=== PATIENT | female | born 1970 | race Caucasian/White ===

== ENCOUNTER 2021-11-29 11:28 | Outpatient (REF) | payer MEDICAID, SELFPAY ==
--- NOTE | 2021-11-29 10:00 | PAPFT_PTH ---
PATIENT: Leslie Arias LOC: [facility] U#:[id number] AGE/SX: 51/F ROOM: RE11/29/[address]: Sandra Parikh MD : 1970 BED: DIS: 11/29/2021 SPEC #: [id number] RECD: 11/29/21 17:41 STATUS: ANKUSH REWill #: [id number] AUGUSTIN: 11/29/21 10:[address]: Sandra Parikh DEPT: [facility] Cytology RECD BY: Franci Galvan Tissues: 1 - CX/ENDOCX FOR PAP SMEARS Procedures: PAP THIN PREP/UVM Screening HPV DNA PROBE Comments: [id number]
== END 2021-11-29 11:29 | disposition home or self-care (01) ==
LOC: LBN 11:28
PROVIDERS: PCP Internal Medicine; Visit Provider Internal Medicine
DX: Z11.51 Encounter for screening for human papillomavirus (HPV) (principal); Z12.4 Encounter for screening for malignant neoplasm of cervix
CPT/HCPCS: 88142; 87624

== ENCOUNTER → 2022-02-07 01:52 | Outpatient (CLI) | payer MEDICAID, SELFPAY ==
--- NOTE | 2022-02-07 09:29 | DI.MAMMO_ITS ---
Exam(s) MAMMO SCREENING EXAM: MAMMO SCREENING CLINICAL HISTORY: screening, Z12.39 TECHNIQUE: Bilateral full field digital CC and MLO mammographic images were obtained with 3D tomosyn thesis and utilizing computer aided detection (CAD). COMPARISON: None. FINDINGS: Masses/Architectural Distortion: There is an ovoid density in the medial central left breast on the c raniocaudad view. Microcalcifications: No suspicious pleomorphic-type are seen. Skin Thickening/Nipple Retraction: None. IMPRESSION: 1. Ovoid density in the medial central left breast on the craniocaudad view. 2. This area should be further evaluated with a spot compression view. Ultrasound may be indicated a t that time. BI-RADS Category 0 - Assessment Incomplete: Need additional imaging evaluation Breast Density - Category C - Heterogeneously dense Breast density category C or D implies that the patient has dense breast tissue. Dense breast tissue is very common and is not abnormal but dense breast tissue can make it harder to find cancer on a ma mmogram. Also, dense breast tissue may increase their breast cancer risk. This information about the result of the mammogram report was provided to the patient to raise their awareness. Use this report when you speak with the patient about their risks for breast cancer, which includes their family hist ory. At that time, you may recommend for more screening tests (Ultrasound or MRI) as they might be us eful based on their risk. A negative radiographic report should not delay biopsy if a dominant or clinically suspicious mass is present. Up to ten percent of cancers are not identified on mammography. A negative report may reinforce clinical impression. Adenosis and dense breasts may obscure an underlying neoplasm. False positive reports average 6 to 10%. Patient will receive a letter notifying them of these results.
== END ==
PROVIDERS: PCP Internal Medicine; Visit Provider Internal Medicine
DX: Z12.31 Encounter for screening mammogram for malignant neoplasm of breast (principal)
CPT/HCPCS: 77063; 77067

== ENCOUNTER → 2022-03-05 03:01 | Outpatient (CLI) | payer MEDICAID, SELFPAY ==
--- NOTE | 2022-03-05 10:30 | DI.MAMMO_ITS ---
Exam(s) MG MAMMO SCREEN CALL BACK UNI US BREAST LT LIMITED EXAM: MG MAMMO SCREEN CALL BACK UNI and U/S breast LT limited CLINICAL HISTORY: F/U ABNL MAMMO, OVOID DENSITY MEDIAL LT BREAST ON CC VIEW. TECHNIQUE: Craniocaudal and mediolateral oblique Full Field Digital Mammography views of the left br east with Computer Aided Diagnosis followed by Tomosynthesis and left breast ultrasound. COMPARISON: Priors for comparison. FINDINGS: Mammography/Tomosynthesis: Masses/Architectural Distortion: None seen. No persistent abnormality is seen on the additional views . Microcalcifictions: No suspicious pleomorphic-type are seen. Skin Thickening/Nipple Retraction: None. Limited left breast US: Echotexture: Normal appearance of the glandular tissue. Shadowing: No suspicious foci. Cyst: There is a 1.1 x 1.1 x 0.7 cm simple cyst at the 3 o'clock position of the left breast 2 cm fro m the nipple. There are 2 simple cysts at the 12 o'clock position 2 cm from the nipple. The larger measures 0.7 cm. The smaller measures 0.6 cm. Solid lesions: None seen. Ductal dilation: None. IMPRESSION: 1. No evidence of malignancy is noted. 2. Unless there is more urgent need, follow-up screening mammography is recommended, as per [employer] guidelines. 3. The findings were discussed with the patient on the date of the examination. BI-RADS Category 2 - Benign Findings Breast Density - Category C - Heterogeneously dense Breast density Category C or D implies that the patient has dense breast tissue. Dense breast tissue can make it harder to find cancer on a mammogram. Dense breast tissue is also associated with an incr eased risk of breast cancer. This information about the result of the mammogram report was provided to the patient to raise their awareness. Use this report when you speak with the patient about their risks for breast cancer, which includes their family history. At that time, you may recommend additional screening tests (Ultrasoun d or MRI) as these tests may add significant information. A negative radiographic report should not delay biopsy if a dominant or clinically suspicious mass is present. Up to ten percent of cancers are not identified on mammography. A negative report may reinforce clinical impression. Adenosis and dense breasts may obscure an underlying neoplasm. False positive reports average 6 to 10%. Patient will receive a letter notifying them of these results.
== END ==
PROVIDERS: PCP Internal Medicine; Visit Provider Internal Medicine
DX: R92.8 Other abnormal and inconclusive findings on diagnostic imaging of breast (principal)
CPT/HCPCS: 76642; 77063; 77067

== ENCOUNTER 2022-04-27 12:05 | Day surgery (SDC) | payer MEDICAID, SELFPAY ==
--- NOTE | 2022-04-26 22:04 | W.COLOREPORT ---
Colonoscopy Report Pre-op diagnosis general: family hx of CRC/hx of enterocele/hemorrhoids Surgeon: Bettye Rodriguez Anesthesia Type: General:No Airway Complications: None Disposition: same day Prep: Miralax/Dulcolax Procedure Description: After informed consent was obtained the patient was taken to the procedure room and placed in a left decubitous position. Monitors were applied and a time out was done. The patients name, date of , procedure, allergies to medications and metal in their body was reviewed. The patient was then sedated. Once sedated and comfortable a rectal exam was done. External exam was normal. Internal exam revealed a normal sphincter tone and no palpable masses. The prostate []. The scope was then introduced and retrofelexed. [] internal hemorrhoids were identified. The scope was then advanced to the cecum [] difficulty. The TI and appendiceal orifice were identified. The prep was []. The scope was then slowly retracted over [] minutes back into the rectum. Polyps were removed at []. The scope was removed and the patient was woken up and taken back to Same day surgery in stable condition. The patient tolerated the procedure well and there were no immediate complications. Follow up: The patient should follow up in [] years unless they develop changes in bowel habits or other new gastrointestinal complaints.
--- NOTE | 2022-04-26 22:06 | W.PM.DSUDISC ---
Discharge Plan Disposition Patient Disposition: HOME Condition: Good Discharge Details Reason For Visit: Colonoscopy and internal hemorrhoid banding Attending Provider: Bettye Rodriguez Primary Care Provider: Sandra Parikh Home Meds and New Rx's Prescriptions: Continued ibuprofen 200 mg capsule 600 mg PO Q6H PRN acetaminophen [Tylenol Extra Strength] 500 mg tablet 500 mg PO Q6H PRN Discontinued bisacodyl [Dulcolax (bisacodyl)] 5 mg tablet,delayed release (DR/EC) 5 mg PO ONCE Qty: 4 0RF Rx Instructions: take per colonoscopy instructions Discharge Instructions Activity:: see above Diet:: see above Discharge Orders Discharge Orders: Discharge Order (Routine); Ordered 04/26/22 Ordered By: Bettye Rodriguez
--- NOTE | 2022-04-27 06:46 | ANES.PREOP_ITS ---
General Info Date of Service Date Performed: 04/27/22 Height: 5 ft 6 in Weight: 74.616 kg Body Mass Index (BMI): 26.5 Surgical Procedure: Operation Date: 04/27/22 12:25 Proposed Procedure Side Surgeon p Colonoscopy Bettye Rodriguez DO s Possible Hemorrhoid Banding Bettye Rodriguez DO Meds Allergies and Home Medications Allergies Allergy/AdvReac Type Severity Reaction Status Date / Time promethazine [From Phenergan] Allergy Severe Anaphylaxis Verified 04/27/22 12:19 hydrocodone bitartrate AdvReac hallucinati Verified 04/27/22 12:19 [From Vicodin] ons oxycodone HCl [From Percocet] AdvReac vomiting Verified 04/27/22 12:19 Home Medication Medication Instructions Recorded acetaminophen 500 mg tablet 500 mg PO Q6H PRN 04/23/22 (Tylenol Extra Strength) ibuprofen 200 mg capsule 600 mg PO Q6H PRN 04/23/22 Current Visit Medications: Current Medications Generic Name Dose Route Start Last Admin Trade Name Allanq PRN Reason Stop Dose Admin Hyoscyamine Sulfate 0.125 mg 04/26/22 22:04 Hyoscyamine 0.125 Mg Sl/Oral/Chew SL DIRECTED PRN Ringer's Solution 1,000 mls @ 80 mls/hr 04/27/22 06:00 IV 04/27/22 23:59 INFUSION [facility] IV Miscellaneous Supplies 1 each 04/27/22 06:00 Iv Access IV 04/27/22 23:59 DIRECTED DELIA Ondansetron HCl 4 mg 04/26/22 22:04 Ondansetron 4 Mg/2 Ml Vial IVP Q4H PRN PRN Nausea / Vomiting Sodium Chloride 0 ml 04/27/22 06:00 Normal Saline Flush 10 Ml Syr IV 04/27/22 23:59 PRN PRN Sodium Chloride 0 ml 04/27/22 06:00 Normal Saline 10 Ml Vial IJ 04/27/22 23:59 DIRECTED PRN Sterile Water 0 ml 04/27/22 06:00 Water,Injection,Sterile 10 Ml Vial IJ 04/27/22 23:59 DIRECTED PRN PFSH Active Problems Active Problems: Problem Status Onset Code Irma-menopausal N95.1 Encounter for colonoscopy in patient with family history of colon cancer Z12.11, Z80.0 Vaginal enterocele N81.5 Attention and concentration deficit R41.840 Irritability and anger R45.4 Anxiety state 04/12/14 F41.1 Depressive disorder F32.A Vaginal prolapse without uterine prolapse N81.10 Urinary frequency R35.0 Family history of colon cancer requiring screening colonoscopy Z80.0 Family history of colon cancer in mother Z80.0 Surgical History Surgical History Biopsy of breast (~1991) Benign cyst Tobacco Smoking/Tobacco Use Status: Never Passive smoking exposure: No Alcohol Alcohol Intake: current Alcohol intake frequency: 3 or more drinks per day Substance Use Substance use: Never Substance use type: does not use Vital Signs and Lab Results Lab Results Blood Type / Crossmatch: No Data to Display Complete Blood Count: No Data to Display Complete Metabolic Panel: No Data to Display Liver Function Panel: No Data to Display Coagulation Panel: No Data to Display Cardiac Panel: No Data to Display Arterial Blood Gas: No Data to Display Venous Blood Gas: No Data to Display Pancreas Panel: No Data to Display Thyroid Panel: No Data to Display Infectious Disease: No Data to Display Blood Cultures: No Data to Display Toxicology Panel: No Data to Display Panel: No Data to Display Anesthesia Assessment and Plan Anesthesia History Personal History: No History of Anesthesia Complications Family History: No Family History of Anesthesia Complications Exercise Tolerance Exercise Tolerance: Metabolic Equivalents>4 Cardiac & Pulmonary Exam Cardiac Exam: Normal S1/S2 Heart Sounds Pulmonary Exam: Clear Bilateral Breath Sounds Implantable Cardiac Device Does patient have a Pacemaker or an ICD?: No Airway Exam Known Difficult Airway: No Mallampati Class: 1 Mouth Opening: Normal (> 3cm) Thyromental Distance: Greater than 3 cm Neck Range of Motion: Full ROM Neck Circumference: Normal Teeth Condition: Normal Dentition ASA Classification ASA Score: ASA 2 Emergency Case?: No NPO Status NPO Status: NPO Clears >2 hours, Solids >8 hours Status Status: Negative HCG Anesthesia Plan Resuscitation Status: Full Code Anesthesia Technique: General Anesthesia Airway Planned: Natural Airway Monitors Used: Standard Monitors Preoperative Comments:: 51 yo female with family hisotry of colon cancer for colo. Sig PMHx: Anxiety/depression, never smoker, daily EtOH.
[2022-04-27 12:21] VITALS: BP 107/73; PULSE 76; RESP 16; TEMP 36.7; O2SAT 99
[2022-04-27] MEDS: Lactated Ringers 1,000 ML 80 ML IV (12:45)
[2022-04-27 12:58] VITALS: BMI 26.5
--- NOTE | 2022-04-27 13:34 | BOWEL_PTH ---
PATIENT: Leslie Arias LOC: [facility] U#:[id number] AGE/SX: 51/F ROOM: RE04/27/[address]: Bettye Rodriguez : 1970 BED: DIS: 04/27/2022 SPEC #: [id number] RECD: 04/27/22 15:14 STATUS: ANKUSH REQ #: [id number] AUGUSTIN: 04/27/22 13:[address]: Bettye Rodriguez DEPT: Surgical Specimen RECD BY: Franci Galvan ENTERED: 04/27/22 15:14 SP TYPE: Bowel OTHR DR: Sandra Parikh MD Tissues: 1 - BIOPSY BOWEL Procedures: GROSS AND MICRO LEVEL 4 Comments: [id number]
[2022-04-27 13:44] VITALS: BP 106/84; PULSE 89; RESP 18; TEMP 36.4; O2SAT 100
[2022-04-27 14:11] VITALS: BP 108/78; PULSE 76; RESP 18; TEMP 36.5; O2SAT 100
--- NOTE | 2022-04-27 14:43 | W.ANESPOSTOP ---
Postoperative Evaluation Date, Time and Location Date Performed: 04/27/22 Time Performed: 14:43 Patient Location: Day Surgery Unit Vital Signs Most Recent Imported Vital Signs: Most Recent Vital Signs Temp Pulse Resp BP Pulse Ox 36.5 C 76 18 108/78 100 04/27/22 14:11 04/27/22 14:11 04/27/22 14:11 04/27/22 14:11 04/27/22 14:11 Pain Score Most Recent Pain Score: Most Recent Pain Score Pain Level 2 04/27/22 14:11 Assessment Mental Status: Awake (Alert & Oriented to Patient Baseline) Airway and Respiratory Function: Patent airway with normal (patient baseline) respiratory exam Cardiovascular Function: Hemodynamically Stable Hydration Status: Adequately Hydrated Nausea & Vomiting: No Nausea or Vomiting Pain: Pt. Denies Any Pain Peripheral Nerve Block: Patient did not receive a nerve block
== END 2022-04-27 14:25 | disposition home or self-care (01) ==
PROVIDERS: PCP Internal Medicine; Visit Provider Surgery
PROC: 0DJD8ZZ Inspection of Lower Intestinal Tract, Via Natural or Artificial Opening Endoscopic (ICD-10-PCS; CPT 45378; principal; 2022-04-27 12:15)
PROC: (CPT 45385; 2022-04-27 12:15)
DX: Z12.11 Encounter for screening for malignant neoplasm of colon (principal); Z80.0 Family history of malignant neoplasm of digestive organs; K64.0 First degree hemorrhoids; K62.1 Rectal polyp
CPT/HCPCS: 45385; 46221; 88305; J2704

== ENCOUNTER → 2022-05-11 13:08 | Outpatient (CLI) | payer MEDICAID, SELFPAY ==
--- NOTE | 2022-05-11 13:00 | DI.RAD_ITS ---
Exam(s) XR CERVICAL SPINE COMP 4-5V EXAM: XR CERVICAL SPINE COMP 4-5V CLINICAL HISTORY: Chronic neck pain. DDD neck M54.2 CERVICALGIA R51.9 HEADACHE G89.29 PAIN. TECHNIQUE: 2D digital imaging was performed. Five images were obtained. AP, odontoid, lateral and bi lateral oblique images were obtained. COMPARISON: No exams were available for comparison FINDINGS: The odontoid is intact. The lateral masses are well aligned. There is straightening of the normal ce rvical lordosis. There is disc space narrowing at C5-6 and C6-C7 in addition to endplate osteophytes . No acute fracture or subluxation is present. There is very mild neural foraminal narrowing bilater ally at C6-C7. The cervical thoracic junction is well maintained. The prevertebral soft tissues are unremarkable. Lung apices are clear. IMPRESSION: Rzep-ye-eoycdzhf cervical spondylosis. DATA REPOSITORY: RADIATION DOSE DELIVERED:
== END ==
PROVIDERS: PCP Internal Medicine; Visit Provider Nurse Practitioner
DX: G89.29 Other chronic pain (principal); M54.2 Cervicalgia; R51.9 Headache, unspecified; M47.812 Spondylosis without myelopathy or radiculopathy, cervical region
CPT/HCPCS: 72050

== ENCOUNTER 2022-05-17 08:28 | Outpatient (CLI) | payer MEDICAID, SELFPAY ==
[2022-05-17 08:46] LABS: HCT 38.8 % (36.0-46.0); HGB 12.5 g/dL (11.2-15.7); MCH 31.7 pg (27.0-33.0); MCHC 32.2 % (32.0-36.0); MCV 99 fL (80-95); Platelet Count 256 10^3/uL (130-400); RBC 3.94 10^6/uL (3.93-5.22); RDW 12.2 % (11.7-14.6); RDW-SD 44.8 fL; WBC 4.35 10^3/uL (4.4-10.8)
--- OUTSIDE RECORDS SUMMARY | 2022-05-17 08:57 | XMS_ITS | Encounter Summary ---
:1970 Author Organization [facility] Address [address] [place] [address] Care Team Providers Name Role Phone Unavailable Primary Care Provider Unavailable Encounter Details Date Type Department Care Team Description 06/02/2008 Before PRISM Converted [facility] Cuevas usan, Visit (Maple) Maple conversion CN [address] [place], [place] [id number] [place] [id number] Social History Tobacco Use Types Packs/Day Years Used Date Never Assessed Sex Assigned at Date Recorded Not on file documented as of this encounter Plan of Treatment Not on filedocumented as of this encounter Procedures Procedure Name Priority Date/Time Associated Diagnosis Comme nts CYTOPATHOLOGY Routine 06/02/2008 0:00 EST Results for this procedure are i n the results section . documented in this encounter Results CYTOPATHOLOGY (06/02/2008 0:00 EST) Pathology Report: CYTOPATHOLOGY REPORT ? [facility] ? LAB Reports generated via electr Deng[employer] Online interface contain original data; ? however they are lacking the format of the original report. ? Caution should be taken when reading/interpreting unformatted reports. ? Name: ? HEATHER ARIAS ? Accession #: ? [id number] ? : ? 1970 (Age: 37) ??F ?Collect Date: ? 06/02/2008 ? Location: ? [facility] ? Receive Date: ? 06/03/2008 ? Provider: ?JEANINE LANDAVERDE CNM ? Copy to: ? Specimen/Source: ? Pap Test, Cervix/Endocervix, ThinPrep Imaging System ? with manual evaluation ? Last Menstrual Period: ? 8/5/07 ? Menstrual/ Status: ? Post : De. 5-5-08 ? Treatment History: ? LEEP: 1997 Normal paps since ? Other: ? HPVA - HPV testing requested if ASC-US on the current ThinPrep Pap test. ? SPECIMEN ADEQUACY ? Satisfactory for Eval uation ? - transformation zone compon ent present ? GENERAL CATEGORIZATION ? Negative for Intraepi thelial Lesion or Malignancy ? Document reviewed and electr onically signed by: ? Jeanien B. Michael, SCT( ASCP) ? Report Date: ??11/24/ 2008 11:14 ? End of Report ? Specimen Performing Organization Address City/State/ZIP Code Phon e Number [facility] [address] [place] [address] SERVICES [facility] [address] [place] [address] documented in this encounter Visit Diagnoses Not on filedocumented in this encounter
--- OUTSIDE RECORDS SUMMARY | 2022-05-17 08:57 | XMS_ITS | Encounter Summary ---
:1970 Author Organization [facility] [place] [address] Care Team Providers Name Role Phone Sandra Parikh MD Primary Care Provider Encounter Details Date Type Department Care Team Description 03/21/2011 Abstract Dermatology Sarah Gudino, RN [address] [place], [place] [address] Social History Tobacco Use Types Packs/Day Years Used Date Never Assessed Sex Assigned at Date Recorded Not on file documented as of this encounter Plan of Treatment Not on filedocumented as of this encounter Visit Diagnoses Not on filedocumented in this encounter Care Teams Sulfonation Equipment Operator Relationship Specialty Start Date End Date Sandra Parikh MD PCP - General 03/15/11 [address] [place], [place] [id number] documented as of this encounter
--- OUTSIDE RECORDS SUMMARY | 2022-05-17 08:57 | XMS_ITS | Encounter Summary ---
:1970 Author Organization [facility] Address [address] [place] [address] Care Team Providers Name Role Phone Unknown, Provider Primary Care Provider Sandra Parikh MD Primary Care Provider Encounter Details Date Type Department Care Team Description 11/30/2021 Lab Requisition [facility] Sandra Parikh Enc ounter for screening for human papillomavirus (HPV); Pathology & MD Encounter for screening for malignant ne oplasm of cervix Laboratory Medicine [address] [place] [id number] Social History Tobacco Use Types Packs/Day Years Used Date Never Assessed Sex Assigned at Date Recorded Not on file documented as of this encounter Plan of Treatment Not on filedocumented as of this encounter Procedures Procedure Name Priority Date/Time Associated Diagnosis Comme nts PAP TEST Today 11/29/2021 10:00 Encounter for Results fo r this EDT screening for human procedur e are in papillomavirus ( HPV) the results Encounter for section. screening for malignant neoplasm of cervix HUMAN PAPILLOMAVIRUS Today 11/29/2021 10:00 Encounter for Re sults for this (HPV) DETECTION-HIGH EDT screening for human procedure are in RISK TYPES papillomavirus ( HPV) the results Encounter for section. screening for malignant neoplasm of cervix documented in this encounter Results HUMAN PAPILLOMAVIRUS (HPV) DETECTION-HIGH RISK TYPES (11/29/2021 10:00 EDT) Human Papillomavirus NegativeComment: No Negative [facility] (HPV) Detection-High E6 or E7 mRNA is CENTER LABORATOR Y Types detected from HPV SERVICES types 16,18,31,33,35,39,45 ,51,52,56,58,59,66, and 68 by real estate administrative assistant mediated amplification. Specimen Pap Test - Cervix and/or Endocervix Performing Organization Address City/State/ZIP Code Phon e Number [facility] [address] [place] [address] SERVICES PAP TEST (11/29/2021 10:00 EDT) Specimens A. Cervix and/or [facility] Endocervix , ThinPrep CENTER Imaging System with LABORATORY Manual Evaluation SERVICES Specimen Adequacy Satisfactory for [facility] Evaluation - CENTER transformation zone LABORATORY component present SERVICES General Negative for [facility] intraepithelial [place] lesion or malignancy LABORATORY SERVICES Attestation . [facility] signed by Yann patel, LABORATORY ERIN Landaverde( CP) SERVICES on 12/07/2021 at 0811 Clinical History SEE BELOW [facility] SERVICES HPV The result for the Human Pap illomavirus (HPV) Detection-High Risk Types is Negative. No E6 or E7 mRNA is detected from HPV types 16,18,31,33,35,39,45,51,52,56,58,59,66, and 68 by real estate administrative assistant mediated [facility] amplification.Testing was pe rformed on specimen [id number] and was resulted on 12/07/2021 0759 EDT by ROMAN, LAB INSTRUMENT RESULTS IN [facility] SERVICES Performing Lab [facility] SERVICES Scanned Images [facility] SERVICES Specimen Pap Test - Cervix and/or Endocervix Performing Organization Address City/State/ZIP Code Phon e Number [facility] [address] [place] [address] SERVICES documented in this encounter Visit Diagnoses Diagnosis Encounter for screening for human papill omavirus (HPV) Special screening examination for human papillomavirus (HPV) Encounter for screening for malignant ne oplasm of cervix Screening for malignant neoplasm of the cervix documented in this encounter Care Teams Oil Program Compliance Specialist Relationship Specialty Start Date End Date Unknown, Jaqui, PCP - General 06/07/15 03/14/22 Sandra Parikh MD PCP - General 03/15/22 [address] [place] [address] documented as of this encounter
--- OUTSIDE RECORDS SUMMARY | 2022-05-17 08:57 | XMS_ITS | Encounter Summary ---
:1970 Author Organization [facility] [place] [address] Care Team Providers Name Role Phone Sandra Parikh MD Primary Care Provider Reason for Visit Reason Comments Skin Check Encounter Details Date Type Department Care Team Description 03/22/2011 Office Visit Dermatology Natalio Tsai, History of basal cell [address] MD carcinoma (Primary [address]) [place], [place] DERMATOLOGY [address] [place] [address] [phone] (Wo rk) Social History Tobacco Use Types Packs/Day Years Used Date Former Smoker Sex Assigned at Date Recorded Not on file documented as of this encounter Progress Notes Natalio Tsai MD - 03/22/2011 9:41 AM EDT Problems: 1. Followup skin checkup. 2. 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 3. Acne/Rosacea overlap. Leslie follows up and has been doing well. 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 Her acne/Rosacea tends to flare a little bit around times of stress but otherwise is doing fairly well. She is not on the pill, not using anything topically. She had been given a prescription for Metronidazole by another provider but lost the prescription. The episode of the vicryl suture spitting back in 12/2009 resolved uneventfully and she has had no further problems along the Mohs excision site on the right nondenominational. Physical examination confirms a minimal and very thin curvilinear incision line along the right nondenominational scalp hairline. It is not erythematous or indurated. Examination of the head and neck reveals a sebaceous complexion with a few benign compound versus intradermal nevi. She has benign examination of the chest, back, hands, arms, forearms, thighs and calves. Assessment & Plan: History of sclerosing BCCa, right nondenominational, excised with Mohs surgery. a. No evidence of recurrence. b. Patient reassured. Acne/Rosacea overlap. a. Another prescription given for Metronidazole 0.75% gel apply to face on a q/ day/BID basis/p.r.n. a week prior to times of stress, 30gm dispensed with five refills. b. RTC here on a p.r.n. basis. NOTE: The patient asks about microdermabrasion to open up and exfoliate her skin. I recommended that she be seen in consultation by Dr. Som Delgado. The patient will make her own appointment. Cc: John Wheeler MD documented in this encounter Plan of Treatment Not on filedocumented as of this encounter Visit Diagnoses Diagnosis History of basal cell carcinoma - Primar y Personal history of other malignant neop lasm of skin documented in this encounter Care Teams Medical Front Desk Specialist Relationship Specialty Start Date End Date Sandra Parikh MD PCP - General 03/15/[address] [place] [address] documented as of this encounter
--- OUTSIDE RECORDS SUMMARY | 2022-05-17 08:57 | XMS_ITS | Encounter Summary ---
:1970 Author Organization [facility] Address [address] [place] [address] Care Team Providers Name Role Phone Unavailable Primary Care Provider Unavailable Encounter Details Date Type Department Care Team Description 06/18/2014 Results Only [facility] Jacob Kate, VICTORIANO Laboratory Services - [address] [place] [address] [address] [place] [address] [phone] Social History Tobacco Use Types Packs/Day Years Used Date Never Assessed Sex Assigned at Date Recorded Not on file documented as of this encounter Plan of Treatment Not on filedocumented as of this encounter Procedures Procedure Name Priority Date/Time Associated Diagnosis Comme nts PAP TEST- RESULT Routine 06/18/2014 0:00 EST Resu lts for this ONLY procedure are i n the results section. documented in this encounter Results PAP TEST- RESULT ONLY (06/18/2014 0:00 EST) Pathology Report: CYTOPATHOLOGY REPORT [facility] Reports generated via electronic interface contain asael ginal data; SERVICES however they are lacking the format of the original re port. Caution should be taken when reading/interpreting unfo rmatted reports. Name: ? HEATHER ARIAS ? Accession #: ? [id number] ? : ? 1970 (Age: 43) ??F ?Collect Da te: ? 06/18/2014 ? Location: ? [facility] ? Receive Date: ? 014 ? Provider: KIKI KATE [facility] Copy to: CHARLES NARANJO MD ? Final Report SPECIMEN ADEQUACY ? Satisfactory for Evaluation - transformation zone component present GENERAL CATEGORIZATION ? Negative for Intraepithelial Lesion or Malignan cy ?? Last Menstrual Period: 3 weeks ago Specimen/Source: ??Pap Test, Cervix/Endocervix, ThinPr ep Imaging System with manual evaluation Document reviewed and electronically signed by: ? Ansley Malone, ERIN(ASCP) ? Report ??Date: 06/24/2014 10:04 HPV with Pap Test ? Date Ordered: ? 06/24/2014 ? Status: ?? Signed Out ?Date Complete: ? 06/28/2014 ? By: ??S ystem Interface ? Date Reported: ? 06/28/2014 ? Interpretation RESULT: Negative for HPV. No E6 or E7 mRNA is detected from HPV types 16,18,31,3 3,35, 39,45,51,52,56,58,59,66, and 68 by information and referral director media phoebe amplification. Comments Document reviewed and electronically signed by: ? System Interface ? Report date: 06/28/2014 By the signature above, the attending physician certif ies that he/she has personally conducted a gross and/or microscopic examin ation of the described specimens and rendered or confirmed the above diagnosi s. End of Report Specimen Performing Organization Address City/State/ZIP Code Phon e Number [facility] [address] [place] [address] SERVICES documented in this encounter Visit Diagnoses Not on filedocumented in this encounter
--- OUTSIDE RECORDS SUMMARY | 2022-05-17 08:57 | XMS_ITS | Encounter Summary ---
:1970 Author Organization [facility] Address [address] [place] [address] Care Team Providers Name Role Phone Sandra Parikh MD Primary Care Provider Encounter Details Date Type Department Care Team Description 04/28/2022 Lab Requisition [facility] Bettye Rodriguez for other Pathology & M, DO general examination Laboratory Medicine - [address] [facility] [address] [place] [phone] Social History Tobacco Use Types Packs/Day Years Used Date Never Assessed Sex Assigned at Date Recorded Not on file documented as of this encounter Plan of Treatment Not on filedocumented as of this encounter Procedures Procedure Name Priority Date/Time Associated Diagnosis Comme nts SURGICAL PATHOLOGY Today 04/27/2022 13:34 Encounter for othe r Results for this EDT general examination procedur e are in the results section. documented in this encounter Results SURGICAL PATHOLOGY (04/27/2022 13:34 EDT) Note to Patient The following [facility] pathology results CENTER have been interpreted LABORATORY by your pathologist SERVICES and may be available to you before your health provider has had the opportunity to review them. Please allow time for your provider to receive these results and explore management options, if applicable. Final Diagnosis A. RECTUM, POLYP, BIOPSY: [facility] MEDICAL - Tubular adenoma. CENTER LABORATORY SERVICES Attestation By the signature [facility] Electronica lly below, the attending CENTER signed by physician Ever certifies LABORATORY Thony Hernandes MD on that they have 1) SERVICES 05/02/2022 at 1110 personally conducted a gross and/or microscopic examination of the described specimen(s), and/or personally interpreted the results of laboratory testing of the described specimen(s), and 2) personally rendered or confirmed the above diagnosis. Clinical History Polyp [facility] SERVICES Gross Description A. [facility] Received in formalin luke d with proper patient identification (initials M, B) and rectal polyp x1 is a single lomeli tissue fragment (0.3 x 0.1 x 0.1 cm). Submitted intact in A1. CENTER LABORATORY DEVIN SINGLETON 04/30/2022 9:42 SERVICES Performing Lab [facility] SERVICES Scanned Images [facility] SERVICES Specimen Tissue - Specimen from rectum (specimen) Performing Organization Address City/State/ZIP Code Phon e Number [facility] [address] [place] [address] SERVICES documented in this encounter Visit Diagnoses Diagnosis Encounter for other general examination documented in this encounter Care Teams Bow Maker Machine Tender Relationship Specialty Start Date End Date Sandra Parikh MD PCP - General 03/15/22 [address] [place], [place] [phone] documented as of this encounter
--- OUTSIDE RECORDS SUMMARY | 2022-05-17 08:57 | XMS_ITS | Clinical Summary ---
:[address] [facility] Address [address] [place] [address] Care Team Providers Name Role Phone Sandra Parikh MD Primary Care Provider Encounters Date Type Specialty Care Team Description 04/28/2022 Lab Requisition Clinical Laboratory Bettye Rodriguez for other M, DO general examina tion from Last 3 Months Social History Tobacco Use Types Packs/Day Years Used Date Never Assessed Sex Assigned at Date Recorded Not on file Plan of Treatment Health Maintenance Due Date Last Done Comments Hepatitis C Screen 1970 COVID-19 Vaccine (#1) 04/10/1972 Procedures Procedure Name Priority Date/Time Associated Diagnosis Comme nts SURGICAL PATHOLOGY Today 04/27/2022 13:34 Encounter for othe r Results for this EDT general examination procedur e are in the results section. from Last 3 Months Results SURGICAL PATHOLOGY (04/27/2022 13:34 EDT) Note to Patient The following [facility] pathology results CENTER have been interpreted LABORATORY by your pathologist SERVICES and may be available to you before your health provider has had the opportunity to review them. Please allow time for your provider to receive these results and explore management options, if applicable. Final Diagnosis A. RECTUM, POLYP, BIOPSY: [facility] - Tubular adenoma. CENTER LABORATORY SERVICES Attestation By the signature [facility] Electronica lly below, the attending CENTER signed by Ever, physician certifies LABORATORY Thony Hernandes MD on that they have 1) SERVICES 05/02/2022 at 1110 personally conducted a gross and/or microscopic examination of the described specimen(s), and/or personally interpreted the results of laboratory testing of the described specimen(s), and 2) personally rendered or confirmed the above diagnosis. Clinical History Polyp [facility] SERVICES Gross Description A. [facility] Received in formalin luke d with proper patient identification (initials M, B) and rectal polyp x1 is a single lomeli tissue fragment (0.3 x 0.1 x 0.1 cm). Submitted intact in A1. CENTER LABORATORY DEVIN SINGLETON 04/30/2022 9:42 SERVICES Performing Lab [facility] SERVICES Scanned Images [facility] SERVICES Specimen Tissue - Specimen from rectum (specimen) Performing Organization Address City/State/ZIP Code Phon e Number [facility] [address] [place] [address] SERVICES from Last 3 Months Insurance Payer Benefit Plan Subscriber ID Effective Phone Address Typ e / Group Dates MEDICAID ACO MEDICAID ACO [id number] 2022-Pre [phone] [address] Medicaid [place] sent [address] [facility] [id number] [phone] [id number] (Work) HugoLeslie Personal/Family Self [address] (Home) [place], [place] [phone] (Work) AriasLeslie Personal/Family Self [address] (Home) [place] [phone] (Work) Leslie Arias Personal/Family Self [address] (Home) [place] [phone] (Work) Leslie Arias Personal/Family Self [address] (Home) [place], [place] [phone] (Work) Leslie Arias Personal/Family Self [address] (Home) [place], [place] [phone] (Work) Leslie Arias Personal/Family Self [address] (Home) [place], [place] [phone] (Work) Leslie Arias Personal/Family Self [address] (Home) [place], [place] [phone] (Work) Care Teams Commercial Baking Teacher Relationship Specialty Start Date End Date Sandra Parikh MD PCP - General 03/15/22 [address] [place] [address]
--- OUTSIDE RECORDS SUMMARY | 2022-05-17 08:57 | XMS_ITS | Clinical Summary ---
:1970 Author Organization [facility] [place] [address] Care Team Providers Name Role Phone Sandra Parikh MD Primary Care Provider Allergies No known active allergies Medications Medication Sig Dispensed Refills Start Date End Date Status LORAZEPAM (ATIVAN ORAL) Take by mouth as 0 Active needed. Active Problems Problem Noted Date History of basal cell carcinoma 03/22/2011 Rosacea 03/21/2011 Social History Tobacco Use Types Packs/Day Years Used Date Former Smoker Sex Assigned at Date Recorded Not on file Plan of Treatment Health Maintenance Due Date Last Done Comments Covid-19 Vaccine (#1) 04/10/1972 HIV screen 10/08/1989 Hepatitis C Screening 10/08/1989 Tdap adult 10/08/1990 Tetanus vaccine 10/08/1990 HPV test 10/08/2001 PAP Smear 10/08/2001 Breast Cancer Share Decision Needed 2011 Colonoscopy 10/08/2016 Breast Cancer screening 10/08/2021 Zoster vaccine (1 of 2) 10/08/2021 Influenza (Flu) vaccine (1 of 1 - Influenza standard 03/15/2022 series) Insurance Payer Benefit Plan / Subscriber ID Effective Dates Phone Addre ss Type Group [place] [id number] 2021-Prese [phone] [address] [facility] [address] [place], [place] [id number] Guarantor Name Account Type Relation to Date of Phone Bill ing Patient Address Leslie Arias Personal/Family Self [address] (Home) [place] [phone] (Work) Care Teams Burlap Bag Sewer Relationship Specialty Start Date End Date Sandra Parikh MD PCP - General 03/15/[address] [place] [address]
--- OUTSIDE RECORDS SUMMARY | 2022-05-17 08:57 | XMS_ITS | Encounter Summary ---
:1970 Author Organization [facility] Address [address] [place] [address] Care Team Providers Name Role Phone Unknown, Provider Primary Care Provider Encounter Details Date Type Department Care Team Description 11/12/2016 Results Only [facility]- Dorcas Montalvo, [facility] [phone] [facility] [place] [address] (Wo rk) Social History Tobacco Use Types Packs/Day Years Used Date Never Assessed Sex Assigned at Date Recorded Not on file documented as of this encounter Plan of Treatment Not on filedocumented as of this encounter Procedures Procedure Name Priority Date/Time Associated Diagnosis Comme nts PAP TEST- RESULT Routine 11/12/2016 0:00 EDT Resu lts for this ONLY procedure are i n the results section. documented in this encounter Results PAP TEST- RESULT ONLY (11/12/2016 0:00 EDT) Pathology Report: CYTOPATHOLOGY REPORT [facility] Reports generated via electronic interface contain asael ginal data; SERVICES however they are lacking the format of the original re port. Caution should be taken when reading/interpreting unfo rmatted reports. Name: ? HEATHER ARIAS ? Accession #: ? [id number] ? : ? 1970 (Age: [age]) ??F ?Collect Date: ? 2016 ? Location: ? [facility] ? Receive Date: ? 7 ? Provider: DORCAS LEIVA [facility] Copy to: CHARLES NARANJO MD ? Final Report SPECIMEN ADEQUACY ? Satisfactory for Evaluation - transformation zone component present GENERAL CATEGORIZATION ? Other, see interpretation INTERPRETATION ? Endometrial cells present in a woman equal to o r greater than age 45. Negative for Intraepithelial Lesion. EDUCATIONAL NOTES/RECOMMENDATIONS ? ASCCP management guid misael advises using histologic endometrial assessment only in postmenopausal women. Benign appearing endometrial cells on Pap tests are usually a normal finding in women with regular menstrual cycles, especially if the Pap test was collected during the first half of the menstrual cycle. There is data showing that e ndometrial cells on Pap tests may be associated with endometrial/uterine abnormal ities in post menopausal women or in perimenopausal women with abnormal bleeding. There is limited data on the significance of anh ign endometrial cells in post menopausal women on HRT. ??Clinical correlation is rec ommended. Note: ??The Pap test is not an accurate test for the screening of endometrial lesions and should not be used as a follow up in patie nts with clinical suspicion of endometrial pathology. Last Menstrual Period: 11/02/16 Specimen/Source: ??Pap Test, Cervix, ThinPrep Imaging System with manual evaluation Document reviewed and electronically signed by: ? ASHLEY GRULLON MD ? Report ??Date: 11/22/2016 13:15 HPV with Pap Test ? Date Ordered: ? 11/21/2016 ? Status: ?? Signed Out ?Date Complete: ? 11/23/2016 ? By: ??Sy stem Interface ? Date Reported: ? 11/23/2016 ? Interpretation RESULT: Negative for HPV. No E6 or E7 mRNA is detected from HPV types 16,18,31,3 3,35, 39,45,51,52,56,58,59,66, and 68 by wet room supervisor media phoebe amplification. Comments Document reviewed and electronically signed by: ? System Interface ? Report date: 11/23/2016 By the signature above, the attending physician certif ies that he/she has personally conducted a gross and/or microscopic examin ation of the described specimens and rendered or confirmed the above diagnosi s. End of Report Specimen Performing Organization Address City/State/ZIP Code Phon e Number [facility] [address] [place] [address] SERVICES documented in this encounter Visit Diagnoses Not on filedocumented in this encounter Care Teams Color Blender Relationship Specialty Start Date End Date Unknown, Provider, PCP - General 06/07/15 03/14/22 documented as of this encounter
--- OUTSIDE RECORDS SUMMARY | 2022-05-17 08:57 | XMS_ITS | Encounter Summary ---
:1970 Author Organization [facility] Address [address] [place] [address] Care Team Providers Name Role Phone Unavailable Primary Care Provider Unavailable Encounter Details Date Type Department Care Team Description 06/04/2007 Results Only [facility] - John Mason MD [address] [place], [place] [id number] [place] [address] [phone] Social History Tobacco Use Types Packs/Day Years Used Date Never Assessed Sex Assigned at Date Recorded Not on file documented as of this encounter Plan of Treatment Not on filedocumented as of this encounter Procedures Procedure Name Priority Date/Time Associated Diagnosis Comme nts SURGICAL PATHOLOGY Routine 06/04/2007 0:00 EST Re sults for this procedure are i n the results section. documented in this encounter Results SURGICAL PATHOLOGY (06/04/2007 0:00 EST) Pathology Report: SURGICAL PATHOLOGY REPORT [facility] Reports generated via electronic interface contain asael ginal data; LAB however they are lacking the format of the original re port. Caution should be taken when reading/interpreting unfo rmatted reports. Name: ? HEATHER ARIAS ? Accession #: ? [id number] ? : ? 1970 (Age: 36) ??F ? Collect Date: ? 06/04/2007 ? Location: ? [facility] ? Receive Date: ? 007 ? Provider: JOHN DEL VALLE MD Copy to: ? Final Pathologic Diagnosis: ? Skin of lower extremity, left, shave biopsy: - Molluscum contagiosum. ?? Microscopic Description: ? There is a papule formed by a hyp erplastic epidermis that has a bulbous endophytic growth pattern with a central keratot ic crater. ??The hyperplastic epidermis consists of keratinocytes whose nuclei are d isplaced by large eosinophilic inclusions. ??T he inclusions are also present within the overlying horn. ??(Dr. Bryant)/glenn Document reviewed and electronically signed by: Olga Lidia Bryant MD Report ??Date: 06/09/2007 14:49 By the signature above, the attending physician certif ies that he/she has personally conducted a gross and/or microscopic examin ation of the described specimens and rendered or confirmed the above diagnosi s. Specimen(s) Received: ? Shave biopsy LLE Clinical History: ? Non-healing lesion; ? [facility] Gross Description: ? Received in formalin labelled Arias and shave bx LLE is a 0.8 x 0.6 x 0.3 cm shave biopsy of lomeli s kin. ??There is a 0.3 x 0.3 x 0.1 cm lomeli-white papule eccentrically located on the shave biopsy. ??The speci men is trisected and entirely submitted in one cassette. ??(Dr. Casarez)/glenn End of Report Specimen Performing Organization Address City/State/ZIP Code Phon e Number [facility] [address] [place] [address] SERVICES [facility] [address] [place] [address] documented in this encounter Visit Diagnoses Not on filedocumented in this encounter
--- OUTSIDE RECORDS SUMMARY | 2022-05-17 08:57 | XMS_ITS | Encounter Summary ---
:1970 Author Organization [facility] Address [address] [place] [address] Care Team Providers Name Role Phone Unavailable Primary Care Provider Unavailable Encounter Details Date Type Department Care Team Description 01/18/2012 Results Only [facility] Jacob Kate, BIAS BINDING FOLDER Laboratory Services - [address] [place] [address] [address] [place] [address] [phone] Social History Tobacco Use Types Packs/Day Years Used Date Never Assessed Sex Assigned at Date Recorded Not on file documented as of this encounter Plan of Treatment Not on filedocumented as of this encounter Procedures Procedure Name Priority Date/Time Associated Diagnosis Comme nts PAP TEST- RESULT Routine 01/18/2012 0:00 EDT Resu lts for this ONLY procedure are i n the results section. documented in this encounter Results PAP TEST- RESULT ONLY (01/18/2012 0:00 EDT) Pathology Report: CYTOPATHOLOGY REPORT [facility] Reports generated via electronic interface contain asael ginal data; however they are lacking the format of the original re port. Caution should be taken when reading/interpreting unfo rmatted reports. Name: ? HEATHER ARIAS ? Accession #: ? [id number] ? : ? 1970 (Age: 41) ??F ?Collect Da te: ? 01/18/2012 ? Location: ? [facility] ? Receive Date: ? 012 ? Provider: KIKI KATE BIAS BINDING FOLDER Copy to: ? Final Report SPECIMEN ADEQUACY ? - scant squamous epithelial component Satisfactory for Evaluation - transformation zone component present GENERAL CATEGORIZATION ? Negative for Intraepithelial Lesion or Malignan cy INTERPRETATION ? Reactive cellular tiffanie nges associated with inflammation present (includes repair). Last Menstural Period: 12/23/11 Treatment History: LEEP: 1996 Specimen/Source: ??Pap Test, Cervix/Endocervix, ThinPr ep Imaging System with manual evaluation Document reviewed and electronically signed by: ? ALIS COKER MD ? Report ??Date: 01/25/2012 13:04 HPV with Pap Test ? Date Ordered: ? 01/25/2012 ? Status: ?? Signed Out ?Date Complete: ? 01/29/2012 ? By: ??S ystem Interface ? Date Reported: ? 01/29/2012 ? Interpretation RESULT: Negative for HPV. No E6 or E7 mRNA is detected from HPV types 16,18,31,3 3,35, 39,45,51,52,56,58,59,66, and 68 by alteration manager media phoebe amplification. Comments Document reviewed and electronically signed by: ? System Interface ? Report date: 01/29/2012 By the signature above, the attending physician certif ies that he/she has personally conducted a gross and/or microscopic examin ation of the described specimens and rendered or confirmed the above diagnosi s. End of Report Specimen Performing Organization Address City/State/ZIP Code Phon e Number [facility] [address] [place] [address] SERVICES [facility] [address] [place] [address] documented in this encounter Visit Diagnoses Not on filedocumented in this encounter
--- OUTSIDE RECORDS SUMMARY | 2022-05-17 08:57 | XMS_ITS | Encounter Summary ---
:1970 Author Organization [facility] Address [address] [place] [address] Care Team Providers Name Role Phone Unavailable Primary Care Provider Unavailable Encounter Details Date Type Department Care Team Description 05/14/2007 Results Only [facility] - Heidi Webster CNM conversion [address] [facility] [address] [place], [place] [id number] [place] [id number] [phone] Social History Tobacco Use Types Packs/Day Years Used Date Never Assessed Sex Assigned at Date Recorded Not on file documented as of this encounter Plan of Treatment Not on filedocumented as of this encounter Procedures Procedure Name Priority Date/Time Associated Diagnosis Comme [facility] CYTOPATHOLOGY Routine 05/14/2007 0:00 EDT Results for this procedure are i n the results section . documented in this encounter Results CYTOPATHOLOGY (05/14/2007 0:00 EDT) Pathology Report: CYTOPATHOLOGY REPORT [facility] Reports generated via electronic interface contain asael ginal data; however they are lacking the format of the original re port. Caution should be taken when reading/interpreting unfo rmatted reports. Name: ? HEATHER ARIAS ? Accession #: ? [id number] : ? 1970 (Age: 36) ??F ?Collect Date: ? 04/16 Location: ? [facility] ? Receive Date : ? 05/15/2007 Provider: ?HEIDI CISNEROS CNM Copy to: ? Specimen/Source: ? ThinPrep Pap Test, Cervix/Endocervix, processed on [employer] ThinPrep Imaging System, with manual evaluation Last Menstrual Period: ? 02/16/07 Menstrual/ Status: ? Treatment History: ? LEEP: 1996 Other: ? Additional clinical information: Pt stat es h/o abnormal pap 10 years ago, also pap wnl since leep 1996 HPVA - HPV testing requested if ASC-US on the current ThinPrep Pap test. ? SPECIMEN ADEQUACY ? Satisfactory for Evaluation - transformation zone component present GENERAL CATEGORIZATION ? Negative for Intraepithelial Lesion or Malignan cy ? Document reviewed and electronically signed by: ? ERIN Stevenson(ASCP) ? Report Date: ??05/20/2007 13:24 End of Report Specimen Performing Organization Address City/State/ZIP Code Phon e Number [facility] [address] [place] [address] SERVICES [facility] [address] [place] [address] documented in this encounter Visit Diagnoses Not on filedocumented in this encounter
--- OUTSIDE RECORDS SUMMARY | 2022-05-17 08:57 | XMS_ITS | Encounter Summary ---
:1970 Author Organization [facility] Address [address] [place] [address] Care Team Providers Name Role Phone Unavailable Primary Care Provider Unavailable Encounter Details Date Type Department Care Team Description 06/06/2009 Orders Only [facility] Heidi Carter CNM Laboratory Services - [address] [place] [address] [address] [facility] [place] [address] [phone] Social History Tobacco Use Types Packs/Day Years Used Date Never Assessed Sex Assigned at Date Recorded Not on file documented as of this encounter Plan of Treatment Not on filedocumented as of this encounter Procedures Procedure Name Priority Date/Time Associated Diagnosis Comme nts CYTOPATHOLOGY Routine 06/06/2009 0:00 EST Results for this procedure are i n the results section . documented in this encounter Results CYTOPATHOLOGY (06/06/2009 0:00 EST) Pathology Report: CYTOPATHOLOGY REPORT ? [facility] ? LAB Reports generated via electr [employer] interface contain original data; ? however they are lacking the format of the original report. ? Caution should be taken when reading/interpreting unformatted reports. ? Name: ? ARIAS, HEATHER ? Accession #: ? [id number] ? : ? 1970 (Age: 38) ??F ?Collect Date: ? 06/06/2009 ? Location: ? [facility] ? Receive Date: ? 06/07/2009 ? Provider: ?ANEA LELON G CNM ? Copy to: ? Specimen/Source: ? Pap Test, Cervix/Endocervix, ThinPrep Imaging System ? with manual evaluation ? Last Menstrual Period: ? 11/05/09 ? Treatment History: ? LEEP: 1997, paps neg. since ? Other: ? HPVA - HPV testing requested if ASC-US on the current ThinPrep Pap test. ? SPECIMEN ADEQUACY ? Satisfactory for Eval uation ? - transformation zone compon ent present ? GENERAL CATEGORIZATION ? Negative for Intraepi thelial Lesion or Malignancy ? Document reviewed and electr onically signed by: ? Saima Huitron, CT(ASCP) ? Report Date: ??12/01/ 2009 08:55 ? End of Report ? Specimen Performing Organization Address City/State/ZIP Code Phon e Number [facility] [address] [place] [address] [facility] [address] [place] [address] documented in this encounter Visit Diagnoses Not on filedocumented in this encounter
[2022-05-17 09:49] LABS: ALT 24 U/L (14-59); AST 16 U/L (15-37); Albumin 3.9 g/dL (3.4-5.0); Alkaline Phosphatase 78 U/L (46-116); Anion Gap 7.3 mmol/L (3-11); BUN 14 mg/dL (7-18); Bilirubin, Total 0.4 mg/dL (0.2-1.0); CO2 28.7 mmol/L (21.0-32.0); CREATININE 0.7 mg/dL (0.55-1.02); Calcium 9.2 mg/dL (8.5-10.1); Chloride 104 mmol/L (98-107); Ferritin 15 ng/mL (8-252); Glucose 85 mg/dL (74-106); Potassium 4.2 mmol/L (3.5-5.1); Sodium 140 mmol/L (136-145)
== END 2022-05-17 08:29 | disposition home or self-care (01) ==
PROVIDERS: PCP Nurse Practitioner; Visit Provider Nurse Practitioner
DX: R53.83 Other fatigue (principal); R51.9 Headache, unspecified; F41.8 Other specified anxiety disorders; R04.0 Epistaxis
CPT/HCPCS: 36415; 80053; 85027; 82728

== ENCOUNTER 2022-06-05 10:18 | Emergency (ER) | payer MEDICAID, SELFPAY ==
[2022-06-05 10:20] VITALS: BP 127/83; PULSE 100; RESP 14; TEMP 37; O2SAT 98
[2022-06-05] MEDS: Silver Nitrate Stick 1 EACH TP (10:59)
--- NOTE | 2022-06-05 11:07 | W.ED.GENAD ---
Discharge Plan Disposition Patient Disposition: Home Condition: Stable Discharge Details Clinical Impression: Epistaxis Primary Care Provider: Latisha Mc ED Provider: Franci Avila Home Meds and New Rx's Prescriptions: Continued ibuprofen 200 mg capsule 600 mg PO Q6H PRN acetaminophen [Tylenol Extra Strength] 500 mg tablet 500 mg PO Q6H PRN nortriptyline 10 mg capsule See Rx Instructions PO QHS Qty: 60 3RF Rx Instructions: Start with 1 tab orally every day at bedtime, increase to 2 tabs at HS; hydroxyzine HCl 25 mg tablet See Rx Instructions PO QID PRN (Reason: headaches) Qty: 30 3RF Rx Instructions: 25-50 orally four times a day PRN; Discharge Instructions Instructions: Nosebleed (ED) Additional Instructions: use humidifier in room coat nostrils twice daily with vaseline refrain from bending over, blowing nose for the remainder of the day follow-up with ENT return earlier with new or worsening complaints Referrals: Latisha Mc, FORGING MACHINE OPERATOR [Primary Care Provider] - Discharge Data Discharge Date/Time-TO BE ENTERED AT DEPARTURE: 06/05/22 13:34 Medical Decision Making Silver nitrate cautery performed, no continued bleeding noted Vitals stable ENT referral Return precautions discussed and patient expressed understanding Coagulation achieved in the emergency department and patient was observed for approximately 15 minutes post several nitrate cauterization Medical Records Medical records reviewed: Yes I reviewed the patient's medical records. Sign Out No HPI General Date/Time Provider Initiated Documentation: 06/05/22 10:37. HPI Narrative: This 51-year-old female presents with report of epistaxis intermittently for the past several days. Denies any weakness or dizziness. Denies history of coagulopathy. Denies any additional complaints at this time. Related Data Home Medications Medication Instructions Recorded Confirmed acetaminophen 500 mg tablet 500 mg PO Q6H PRN 04/23/22 06/05/22 (Tylenol Extra Strength) ibuprofen 200 mg capsule 600 mg PO Q6H PRN 04/23/22 06/05/22 nortriptyline 10 mg capsule See Rx Instructions PO QHS #60 caps 05/03/22 06/05/22 hydroxyzine HCl 25 mg tablet See Rx Instructions PO QID PRN 05/28/22 06/05/22 headaches #30 tabs Previous Rx's Medication Instructions Recorded nortriptyline 10 mg capsule See Rx Instructions PO QHS #60 caps 05/03/22 hydroxyzine HCl 25 mg tablet See Rx Instructions PO QID PRN 05/28/22 headaches #30 tabs Allergies Allergy/AdvReac Type Severity Reaction Status Date / Time promethazine [From Phenergan] Allergy Severe Anaphylaxis Verified 06/05/22 12:43 hydrocodone bitartrate AdvReac hallucinati Verified 06/05/22 12:43 [From Vicodin] ons oxycodone HCl [From Percocet] AdvReac vomiting Verified 06/05/22 12:43 General Stated Complaint: Epistaxis LATASHA: 4 Review of Systems All systems reviewed & are unremarkable except as noted in HPI and below PFSH All Active Problems (Updated 06/05/22 @ 11:09 by YEE Coronado) Epistaxis (Acute) Migraine headache without aura (Acute) Tubular adenoma (Acute ~04/27/22) Irma-menopausal (Acute) Encounter for colonoscopy in patient with family history of colon cancer (Acute) Vaginal enterocele (Acute) Attention and concentration deficit (Acute) Irritability and anger (Acute) Anxiety state (Acute 04/12/14) Depressive disorder (Chronic) Vaginal prolapse without uterine prolapse (Acute) Urinary frequency (Acute) Family history of colon cancer requiring screening colonoscopy (Acute) pt needs to be on 5yr screening cycle Family history of colon cancer in mother (Acute) Medical History Esophageal reflux (09/30/14) Family history of colon cancer (06/18/14) Mother, MGF, Mat aunt Hoarseness (08/18/14) Singers' nodes (08/18/14) Surgical History Biopsy of breast (~1991) Benign cyst History of colonoscopy with polypectomy (~04/27/22) Family History Mother Colon cancer Grandfather Colon cancer maternal Maternal Aunt Colon cancer Social History Smoking/Tobacco Use Status: Never Smoking risk assessment performed?: Yes Alcohol Intake: current Alcohol Intake frequency: 3 or more drinks per day Drug use: Never Substance use type: does not use Caregiver/Support person: No Household members: spouse and children Housing: house Number of Children: 3 number of grandchildren: 1 Communication Needs: None Education Level: master's degree current occupation: working at [employer] at [employer] Pets and animals: Yes Pets and animals: cat(s) Sexually active: Yes Do you think of yourself as: straight/heterosexual Current gender identity: female What is your relationship status?: How often do you talk on the phone with friends or family?: once per week How often do you get together with friends or relatives?: once per week Panel score (0-1 are the most socially isolated patients): 1 What type of physical activity do you participate in: regular exercise Duration: 30-45 minutes/day Frequency: 5-6 times per week Special lorena needs: Yes (Congregation and Hindu) Seatbelt use: always Drive intox or ride w/intox vibratory pile driver: No Working smoke detector in home: Yes Carbon monox detector in home: Yes Do you feel safe at home: Yes Do you feel safe in your relationship?: Yes Exam Const General: cooperative, comfortable and no acute distress [facility] Face images: 1. Small arterial noted one third anterior septum left nare Course Vital Signs Vital signs: Vital Signs Temperature 37.0 C 06/05/22 10:20 Pulse 100 H 06/05/22 10:20 Respiratory Rate 14 06/05/22 10:20 Blood Pressure 127/83 06/05/22 10:20 Pulse Oximetry 98 06/05/22 10:20 Temperature 37.0 C 06/05/22 10:20 Temperature Source Temporal Artery Scan 06/05/22 10:20 Pulse 100 H 06/05/22 10:20 Respiratory Rate 14 06/05/22 10:20 Blood Pressure 127/83 06/05/22 10:20 Blood Pressure Position Sitting 06/05/22 10:20 Pulse Oximetry 98 06/05/22 10:20 Oxygen Delivery Method Room Air 06/05/22 10:20 Oxygen Flow Rate 0 06/05/22 10:20 Procedures Epistaxis Control Time Out Performed: Yes Nostril: left Direct Inspection: yes Cautery Used: silver nitrate Patient Tolerated Procedure: well
[2022-06-05 12:47] VITALS: BP 125/84; PULSE 90; RESP 14; O2SAT 98
== END 2022-06-05 13:34 | disposition home or self-care (01) ==
PROVIDERS: Emergency Provider Physician Assistant; PCP Nurse Practitioner
DX: R04.0 Epistaxis (principal)
CPT/HCPCS: 30901

== ENCOUNTER 2022-09-03 15:59 | Outpatient (CLI) | payer MEDICAID, SELFPAY ==
--- NOTE | 2022-09-03 14:10 | DI.RAD_ITS ---
Exam(s) XR ELBOW LT COMPLETE EXAM: XR ELBOW LT COMPLETE CLINICAL HISTORY: LT ELBOW PAIN-[id number]. TECHNIQUE: 2D digital imaging was performed. Three views. COMPARISON: No exams were available for comparison FINDINGS: BONES: No acute fracture is present. No bony destructive lesion is seen. JOINTS: The elbow is normally aligned. No joint effusion is seen. SOFT TISSUE: Normal. IMPRESSION: Unremarkable radiographs of the left elbow. DATA REPOSITORY: RADIATION DOSE DELIVERED:
== END 2022-09-03 16:19 ==
LOC: DI 16:02
PROVIDERS: PCP Nurse Practitioner; Visit Provider Nurse Practitioner
DX: M25.522 Pain in left elbow (principal)
CPT/HCPCS: 73080

== ENCOUNTER 2022-11-24 07:55 | Emergency (ER) | payer MEDICAID, SELFPAY ==
[2022-11-24 07:59] VITALS: BP 107/74; PULSE 98; RESP 18; TEMP 37; O2SAT 100
--- NOTE | 2022-11-24 08:20 | ED.GENADUL_ITS ---
Discharge Plan Disposition Patient Disposition: Home Discharge Details Chief Complaint: Sorethroat Clinical Impression: Acute viral pharyngitis Primary Care Provider: Latisha Mc ED Provider: Min Noel Home Meds and New Rx's Prescriptions: No Action ibuprofen 200 mg capsule 600 mg PO Q6H PRN acetaminophen [Tylenol Extra Strength] 500 mg tablet 500 mg PO Q6H PRN sumatriptan succinate 100 mg tablet See Rx Instructions PO .COMPLEX Qty: 14 3RF Rx Instructions: take 1 tab at onset of headache; if no relief, may repeat 1 tab after at least 2 hrs; max = 2 tabs/24 hrs PO Discharge Instructions Instructions: Upper Respiratory Infection (ED) Additional Instructions: You may take Tylenol and or Motrin for the pain. You may use some loss injures. Your strep culture is pending. You were tested for COVID and for strep and both of these were negative. If the strep culture comes back positive we will call you. Medical Decision Making Patient with 24 hours of sore throat. Mild fever yesterday. Well-appearing. Strep throat sent by protocol. If negative will be cultured. Rapid strep resulted negative.. Culture pending. COVID test ordered and resulted negative HPI General Date/Time Provider Initiated Documentation: 11/24/22 08:19 . HPI Narrative: 52-year-old lady presented to the emergency department for concern of strep throat. She has been having sore throat for the past 24 hours. Difficulty with swallowing secondary to pain. He did take some Motrin which helped mildly. She thinks he may have had a fever yesterday but no fever today. No nausea no vomiting. No headaches. 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 She did have strep throat several years ago and states that it feels pretty much the same. No cough. Related Data Home Medications Medication Instructions Recorded Confirmed acetaminophen 500 mg tablet 500 mg PO Q6H PRN 04/23/22 11/24/22 (Tylenol Extra Strength) ibuprofen 200 mg capsule 600 mg PO Q6H PRN 04/23/22 11/24/22 sumatriptan succinate 100 mg tablet See Rx Instructions PO .COMPLEX 07/17/22 11/24/22 #14 tabs Previous Rx's Medication Instructions Recorded sumatriptan succinate 100 mg tablet See Rx Instructions PO .COMPLEX 07/17/22 #14 tabs Allergies Allergy/AdvReac Type Severity Reaction Status Date / Time promethazine [From Phenergan] Allergy Severe Anaphylaxis Verified 11/24/22 08:02 hydrocodone bitartrate AdvReac hallucinati Verified 11/24/22 08:02 [From Vicodin] ons oxycodone HCl [From Percocet] AdvReac vomiting Verified 11/24/22 08:02 General Stated Complaint: Sorethroat LATASHA: 4 Review of Systems Narrative: 10 point review of system is negative unless otherwise specified in review of systems. PFSH All Active Problems (Updated 11/24/22 @ 09:04 by Min Noel MD) Family history of colon cancer in mother (Acute) Family history of colon cancer requiring screening colonoscopy (Acute) pt needs to be on 5yr screening cycle Urinary frequency (Acute) Vaginal prolapse without uterine prolapse (Acute) Depressive disorder (Chronic) Anxiety state (Acute 04/12/14) Irritability and anger (Acute) Attention and concentration deficit (Acute) Vaginal enterocele (Acute) Encounter for colonoscopy in patient with family history of colon cancer (Acute) Irma-menopausal (Acute) Tubular adenoma (Acute ~04/27/22) Migraine headache without aura (Acute) Left cervical radiculopathy (Acute) Neck pain, chronic (Acute) Lateral epicondylitis, left elbow (Acute) Acute viral pharyngitis (Acute) Medical History Esophageal reflux (09/30/14) Family history of colon cancer (06/18/14) Mother, MGF, Mat aunt Hoarseness (08/18/14) Singers' nodes (08/18/14) Surgical History Biopsy of breast (~1991) Benign cyst History of colonoscopy with polypectomy (~04/27/22) Family History Mother Colon cancer Grandfather Colon cancer maternal Maternal Aunt Colon cancer Social History Smoking/Tobacco Use Status: Never Smoking risk assessment performed?: Yes Alcohol Intake: current Alcohol Intake frequency: 3 or more drinks per day Drug use: Never Substance use type: does not use Caregiver/Support person: No Household members: spouse and children Housing: house Number of Children: 3 number of grandchildren: 1 Communication Needs: None Education Level: master's degree current occupation: working at [employer] at [email or web address] Pets and animals: Yes Pets and animals: cat(s) Sexually active: Yes Do you think of yourself as: straight/heterosexual Current gender identity: female What is your relationship status?: How often do you talk on the phone with friends or family?: once per week How often do you get together with friends or relatives?: once per week Panel score (0-1 are the most socially isolated patients): 1 What type of physical activity do you participate in: regular exercise Duration: 30-45 minutes/day Frequency: 5-6 times per week Special lorena needs: Yes (Adventist and Baptist) Seatbelt use: always Drive intox or ride w/intox subway train driver: No Working smoke detector in home: Yes Carbon monox detector in home: Yes Do you feel safe at home: Yes Do you feel safe in your relationship?: Yes Exam Narrative Exam Narrative: Adult normal exam General: A,A Ox3, Calm, no apparent distress, well developed, pleasant and cooperative Head Size/Shape: normocephalic, atraumatic Eyes Pupils: PERRLA Extraocular Mobility: intact and symmetrical Conjunctiva: non-injected, anicteric, no discharge Ears, Nose, Throat mild erythema of the oropharynx. No signs of abscess normal uvula normal floor the mouth Nares: patent bilaterally Oral Cavity: moist Neck: no masses, no crepitus Lymph Nodes: Bilateral lymphadenopathies Respiratory Respiratory Effort: no dyspnea CV good cap refill Musculoskeletal System Joints, Bones, and Muscles: no deformities Extremities: warm and well-perfused, no cyanosis, capillary refill <2 seconds Skin Skin Inspection: no rash, no lesions, no bruising Neurological Motor: normal tone, normal strength, moving all extremities equally Psychiatric: good insight, good judgement, normal mood and affect Course Vital Signs Vital signs: Vital Signs Temperature 37.0 C 11/24/22 07:59 Pulse 98 H 11/24/22 07:59 Respiratory Rate 18 11/24/22 07:59 Blood Pressure 107/74 11/24/22 07:59 Pulse Oximetry 100 11/24/22 07:59 Temperature 37.0 C 11/24/22 07:59 Pulse 98 H 11/24/22 07:59 Respiratory Rate 18 11/24/22 07:59 Respiratory Effort Normal, Non-Labored 11/24/22 08:03 Blood Pressure 107/74 11/24/22 07:59 Blood Pressure Position Sitting 11/24/22 07:59 Pulse Oximetry 100 11/24/22 07:59 Oxygen Delivery Method Room Air 11/24/22 07:59 Oxygen Flow Rate 0 11/24/22 07:59 Lab/Test Results Lab/Test Results: 11/24/22 08:17 [facility] - Not Specified Group A Streptococcus Culture - Pending POC Strep Test-PAPO(Rapid) Start: 11/24/22 08:14 Freq: Status: Active Protocol: Document 11/24/22 08:14 DEWAYNE (Rec: 11/24/22 08:14 DEWAYNE [id number]) Strep test-PAPO(Rapid)-POC POC-Strep test-PAPO (Rapid) Negative POC-Strep test-PAPO (Rapid) Negative PAWSS Have you Been Recently Intoxicated or Drunk Within the Last 30 days?: No Have you Ever Experienced Previous Episodes of Alcohol Withdrawal?: No Have you ever Experienced Withdrawal Seizures?: No Have you ever Experienced Delirium Tremens(DT)s?: No Have you ever undergone Alcohol Rehabilitation Treatment (i.e, inpt ot outpatient treatment programs)?: No Have you ever Experienced Blackouts?: No Have you ever Combined Alcohol with other Downers within the last 90 days?: No Have you ever Combined Alcohol with any other Substance of Abuse during the last 90 days?: No Positive Blood Alcohol level on Presentation? [PCS.BAL]: No Evidence of Increased Autonomic Activity (i.e. HR>120, tremor, sweating, agitation, nausea)?: No Result: 0
--- NOTE | 2022-11-26 11:43 | NUR.NOTE ---
Nursing Note: in chart because3 pt called looking for followup info after receiving call from [facility]
== END 2022-11-24 09:11 | disposition home or self-care (01) ==
PROVIDERS: Emergency Provider Emergency Medicine; PCP Nurse Practitioner
DX: J02.8 Acute pharyngitis due to other specified organisms (principal); R50.9 Fever, unspecified; R51.9 Headache, unspecified
CPT/HCPCS: 87426; 87880; 99282; 87081; 99283

== ENCOUNTER 2022-11-27 14:52 | Outpatient (REF) | payer MEDICAID, SELFPAY ==
[2022-11-27 19:39] LABS: COVID-19 PCR Negative (Negative); Influenza A PCR Negative (Negative); Influenza B PCR Negative (Negative); RSV PCR Negative (Negative)
[2022-11-27 19:42] LABS: Source Nasopharynx
== END 2022-11-27 14:53 | disposition home or self-care (01) ==
LOC: LBN 14:52
PROVIDERS: PCP Nurse Practitioner; Referring Provider Student in an Organized Health Care Education/Training Program; Visit Provider Student in an Organized Health Care Education/Training Program
DX: J02.9 Acute pharyngitis, unspecified (principal); J06.9 Acute upper respiratory infection, unspecified; M79.18 Myalgia, other site; Z20.822 Contact with and (suspected) exposure to COVID-19
CPT/HCPCS: 87637

== ENCOUNTER 2023-03-04 09:44 | Emergency (ER) | payer MEDICAID, SELFPAY ==
[2023-03-04 09:55] VITALS: BP 128/76; PULSE 71; RESP 18; TEMP 37; O2SAT 100
[2023-03-04 11:05] LABS: Abs Immature Grans 0.01 10^3/uL (0.0-0.06); Absolute Basophil Count 0.03 10^3/uL (0.0-0.2); Absolute Eosinophil Count 0.08 10^3/uL (0.0-0.7); Absolute Lymphocyte Count 1.14 10^3/uL (1.2-3.4); Absolute Monocyte Count 0.41 10^3/uL (0.1-0.8); Absolute Neutrophil Count 2.35 10^3/uL (1.2-6.7); Basophils % 0.7; HCT 38.4 % (36.0-46.0); HGB 12.2 g/dL (11.2-15.7); Immature Grans % 0.2; Lymphocytes % 28.4; MCH 29.2 pg (27.0-33.0); MCHC 31.8 % (32.0-36.0); MCV 92 fL (80-95); MPV 9.4 fL (8.0-11.0); Monocytes % 10.2; Neutrophils % 58.5; Platelet Count 282 10^3/uL (130-400); RBC 4.18 10^6/uL (3.93-5.22); RDW 14.1 % (11.7-14.6); RDW-SD 48.1 fL; WBC 4.02 10^3/uL (4.4-10.8)
[2023-03-04 11:28] LABS: ALT 22 U/L (14-59); AST 14 U/L (15-37); Albumin 3.9 g/dL (3.4-5.0); Alkaline Phosphatase 77 U/L (46-116); BUN 14 mg/dL (7-18); Bilirubin, Total 0.3 mg/dL (0.2-1.0); CREATININE 0.8 mg/dL (0.55-1.02); Calcium 9.3 mg/dL (8.5-10.1); Chloride 105 mmol/L (98-107); Creatine Kinase 103 U/L (26-192); Estimated GFR 89.15 (mL/min/1.73m2); Glucose 91 mg/dL (74-106); Potassium 4.6 mmol/L (3.5-5.1); Sodium 140 mmol/L (136-145); Total Protein 7.9 g/dL (6.4-8.2)
[2023-03-04 12:40] VITALS: BP 119/74; PULSE 74; RESP 18; O2SAT 100
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
--- NOTE | 2023-03-05 07:22 | NUR.NOTE ---
Accessed patient chart to print provider note to be faxed to [facility] for billing purposes.Nursing Note:
== END 2023-03-04 12:48 | disposition home or self-care (01) ==
PROVIDERS: Emergency Provider Physician Assistant; PCP Nurse Practitioner
DX: S80.11XA Contusion of right lower leg, initial encounter (principal); V28.49XA Other motorcycle driver injured in noncollision transport accident in traffic accident, initial encounter
CPT/HCPCS: 36415; 80053; 82550; 99282; 85025

== ENCOUNTER → 2023-03-12 01:36 | Outpatient (CLI) | payer MEDICAID, SELFPAY ==
--- NOTE | 2023-03-12 08:45 | DI.US_ITS ---
Exam(s) US SOFT TISSUE EXTREMITY EXAM: US SOFT TISSUE EXTREMITY CLINICAL HISTORY: evaluate hematoma, soft tissue injury, S80.10XA, T14.90XA, S87.80XA. TECHNIQUE: Ultrasound was performed using standard protocol. COMPARISON: No exams were available for comparison FINDINGS: Sonographic assessment utilizing grayscale and color Doppler imaging was performed and targeted to th e area of clinical concern. Heterogeneous soft tissue thickening in the posterior calf. In the appropriate clinical setting, hem atoma should be considered. Ill-defined mass cannot be excluded. Please correlate with patient's hi story and physical exam. No focal fluid collection is seen to suggest an abscess. If further imagin g is warranted, a CT scan or MRI may be obtained. IMPRESSION: DATA REPOSITORY:
--- NOTE | 2023-03-12 08:45 | DI.US_ITS ---
Exam(s) US LOWER EXTREMITY VENOUS RT EXAM: US LOWER EXTREMITY VENOUS RT CLINICAL HISTORY: r/o dvt, HEMATOMA LEG, SOFT TISSUE INJURY, S80.10XA, T14.90XA TECHNIQUE: Right lower extremity venous ultrasound performed using grayscale, color-flow, and spectr al Doppler analysis. COMPARISON: No exams were available for comparison FINDINGS: The right common femoral, femoral and popliteal veins demonstrate normal compressibility, augmentatio n, and color Doppler. The posterior tibial and peroneal veins are patent. The saphenofemoral junctio n is unremarkable. There is no evidence of a Villaseñor cyst. The soft tissues are unremarkable. IMPRESSION: No evidence of a right lower extremity DVT. DATA REPOSITORY:
== END ==
PROVIDERS: PCP Nurse Practitioner; Visit Provider Student in an Organized Health Care Education/Training Program
DX: S80.11XA Contusion of right lower leg, initial encounter (principal); X58.XXXA Exposure to other specified factors, initial encounter
CPT/HCPCS: 76881; 93971

== ENCOUNTER 2023-03-26 10:50 | Outpatient (CLI) | payer MEDICAID, SELFPAY ==
[2023-03-26 08:43] LABS: Abs Immature Grans 0.01 10^3/uL (0.0-0.06); Absolute Basophil Count 0.03 10^3/uL (0.0-0.2); Absolute Eosinophil Count 0.09 10^3/uL (0.0-0.7); Absolute Lymphocyte Count 1.35 10^3/uL (1.2-3.4); Absolute Monocyte Count 0.38 10^3/uL (0.1-0.8); Absolute Neutrophil Count 2.35 10^3/uL (1.2-6.7); Basophils % 0.7; Eosinophils % 2.1; HGB 13.1 g/dL (11.2-15.7); Immature Grans % 0.2; Lymphocytes % 32.1; MCV 91 fL (80-95); MPV 9.5 fL (8.0-11.0); Neutrophils % 55.9; Platelet Count 261 10^3/uL (130-400); RBC 4.52 10^6/uL (3.93-5.22); RDW 15.7 % (11.7-14.6); WBC 4.21 10^3/uL (4.4-10.8)
[2023-03-26 08:53] LABS: Mono Screening Negative (Negative)
[2023-03-26 09:14] LABS: ALT 25 U/L (14-59); AST 12 U/L (15-37); Albumin 3.9 g/dL (3.4-5.0); Alkaline Phosphatase 76 U/L (46-116); Anion Gap 8.2 mmol/L (3-11); BUN 18 mg/dL (7-18); Bilirubin, Total 0.3 mg/dL (0.2-1.0); CO2 27.8 mmol/L (21.0-32.0); CREATININE 0.8 mg/dL (0.55-1.02); Calcium 9.3 mg/dL (8.5-10.1); Chloride 103 mmol/L (98-107); Estimated GFR 89.15 (mL/min/1.73m2); Glucose 102 mg/dL (74-106); Potassium 4.1 mmol/L (3.5-5.1); Sodium 139 mmol/L (136-145); Total Protein 8.2 g/dL (6.4-8.2)
[2023-03-26 09:53] LABS: Creatine Kinase 70 U/L (26-192)
== END 2023-03-26 10:51 | disposition home or self-care (01) ==
LOC: LBO 10:50
PROVIDERS: PCP Nurse Practitioner; Visit Provider Student in an Organized Health Care Education/Training Program
DX: R22.1 Localized swelling, mass and lump, neck; R59.0 Localized enlarged lymph nodes; J02.9 Acute pharyngitis, unspecified
CPT/HCPCS: 36415; 80053; 82550; 85025; 86308

== ENCOUNTER 2023-05-20 09:35 | Outpatient (CLI) | payer MEDICAID, SELFPAY ==
--- NOTE | 2023-05-20 09:35 | RT.EKG_ITS ---
APPROVED REPORT Exam: Resting ECG Reason for Exam: Palpatations Patient Location: O HR:74 bpm ECG Measurements Heart Rate 74 AXIS WI 155 P 72 QRSd 73 QRS 69 QT 370 T 56 QTc 411 Conclusion Sinus rhythm...normal P axis, V-rate 50- 99 Probable left atrial enlargement...P >50mS, <-0.10mV V1 Otherwise normal ECG
== END 2023-05-20 09:36 | disposition home or self-care (01) ==
LOC: DI.CM 09:36
PROVIDERS: PCP Student in an Organized Health Care Education/Training Program; Visit Provider Physician Assistant
DX: R07.89 Other chest pain (principal)
CPT/HCPCS: 93010

== ENCOUNTER 2023-05-25 00:22 | Emergency (ER) | payer MEDICAID, SELFPAY ==
[2023-05-25] VITALS (35 sets, daily range): BP systolic 90–150; BP diastolic 43–101; PULSE 76–948; RESP 10–26; TEMP 37.1; O2SAT 99
--- NOTE | 2023-05-25 00:15 | DI.RAD_ITS ---
Exam(s) XR PORTABLE CHEST AP EXAM: XR PORTABLE CHEST AP CLINICAL HISTORY: chest pain. TECHNIQUE: 2D digital imaging was performed. COMPARISON: No exams were available for comparison FINDINGS: Single AP portable view. Heart size is upper normal. The mediastinum is not widened. Lungs are clear. No infiltrates nor obvious pleural effusions. IMPRESSION: No acute pulmonary findings on this single AP portable view of the chest. DATA REPOSITORY: RADIATION DOSE DELIVERED:
--- NOTE | 2023-05-25 00:15 | RT.EKG_ITS ---
APPROVED REPORT Exam: Resting ECG Reason for Exam: chest pain Patient Location: E HR:106 bpm ECG Measurements Heart Rate 106 AXIS ID 139 P 67 QRSd 80 QRS 65 QT 333 T 18 QTc 442 Conclusion Sinus tachycardia...rate> 99 Probable left atrial enlargement...P >50mS, <-0.10mV V1 SINUS TACHYCARDIA, When compared to prior earlier today HR has increased. WD
--- NOTE | 2023-05-25 00:15 | RT.EKG_ITS ---
APPROVED REPORT Exam: Resting ECG Reason for Exam: CHEST PAIN Patient Location: E HR:85 bpm ECG Measurements Heart Rate 85 AXIS WY 150 P 72 QRSd 80 QRS 61 QT 354 T 53 QTc 422 Conclusion Sinus rhythm...normal P axis, V-rate 60- 99 Probable left atrial enlargement...P >50mS, <-0.10mV V1 ST elev, probable normal early repol pattern...ST elevation, age<55 sinus rhythm. No significant change from prior. 05/20/23, WD
[2023-05-25 00:39] LABS: Abs Immature Grans 0.01 10^3/uL (0.0-0.06); Absolute Basophil Count 0.03 10^3/uL (0.0-0.2); Absolute Eosinophil Count 0.08 10^3/uL (0.0-0.7); Absolute Lymphocyte Count 1.63 10^3/uL (1.2-3.4); Absolute Monocyte Count 0.81 10^3/uL (0.1-0.8); Absolute Neutrophil Count 3.85 10^3/uL (1.2-6.7); Basophils % 0.5; Eosinophils % 1.2; HCT 35.6 % (36.0-46.0); HGB 11.6 g/dL (11.2-15.7); Immature Grans % 0.2; Lymphocytes % 25.4; MCH 30.7 pg (27.0-33.0); MCHC 32.6 % (32.0-36.0); MCV 94 fL (80-95); MPV 9.3 fL (8.0-11.0); Monocytes % 12.6; Neutrophils % 60.1; Platelet Count 239 10^3/uL (130-400); RBC 3.78 10^6/uL (3.93-5.22); RDW 15.6 % (11.7-14.6); WBC 6.41 10^3/uL (4.4-10.8)
--- NOTE | 2023-05-25 00:39 | ED.GENADUL_ITS ---
Discharge Plan Disposition Patient Disposition: Home Condition: Stable Discharge Details Clinical Impression: Anxiety, Chest pain Primary Care Provider: Ayesha Vegas ED Provider: Mary Anne Cazares Home Meds and New Rx's Prescriptions: New lorazepam [Ativan] 1 mg tablet 1 mg PO TID PRNQty: 10 0RF No Action ibuprofen 200 mg capsule 600 mg PO Q6H PRN acetaminophen [Tylenol Extra Strength] 500 mg tablet 500 mg PO Q6H PRN sumatriptan succinate 100 mg tablet See Rx Instructions PO .COMPLEX Qty: 14 3RF Rx Instructions: take 1 tab at onset of headache; if no relief, may repeat 1 tab after at least 2 hrs; max = 2 tabs/24 hrs PO capsaicin [Arthritis-Muscle (capsaicin)] 0.025 % cream 1 applic topical TID Qty: 25 0RF Rx Instructions: do not wash area for at least 30 min after application lidocaine HCl 4 % adhesive patch,medicated 1 patch topical DAILY PRN (Reason: pain) Qty: 30 0RF Rx Instructions: apply patch to area of maximal pain. leave in place for 12 hours, then remove for 12 hours. repeat as needed Discharge Instructions Instructions: Chest Pain (ED), Anxiety (ED) Additional Instructions: Return to the ED for worsening pain and difficulty breathing. Despite negative workup at this time you may still be at risk for a cardiac event and are strong ly encouraged to follow up for further testing. Referrals: Ayesha Vegas DO [Primary Care Provider] - 2 days Discharge Data Discharge Physician: Mary Anne Cazares Medical Decision Making 52-year-old female presents for evaluation of episode of chest pain radiating to her right arm. She did receive aspirin and nitro in route. She continues to have some slight discomfort in the center of her chest. EKG does not show any acute ischemic changes. Patient was given GI cocktail. She had some numbness to her tongue and had episode of increased heart rate. Repeat EKG was done at that time and shows sinus tachycardia. She was given Ativan and heart rate improved. Second troponin was normal. Patient's heart rate was monitored throughout and was in the 70s 80s prior to discharge. She states that her primary care physician was going to start her on Lexapro however the p rescription has not made it to the pharmacy yet. I have sent over small prescription of Ativan for severe symptoms. Unlikely PE, aortic dissection, or cardiac cause of symptoms due to lack of risk factors, description of pain, unremarkable vital signs, and negative work-up. Will discharge home. Patient is to follow up with PMD. Return to the ED for worsening pain and difficulty breathing. Despite negative workup at this time, pt is counselled that they may still be at risk for a cardiac event and are strongly encouraged to follow up for further testing. HPI General Date/Time Provider Initiated Documentation: 05/25/23 00:27 . HPI Narrative: 52-year-old female presents for evaluation of chest pain. Patient states that she was sitting watching TV this evening when she developed pain in the center of her chest that radiated down her right arm. She checked her pulse at that time and it was very elevated so they called 911. during transport she received aspirin and 2 sublingual nitro. The arm pain resolved but she continues to have some tightness in the center of her chest. She denies any recent fevers. No cough or cold. No shortness of breath. No leg pain or swelling. She did have a somewhat recent history of hematoma to her lower extremity. She had an ultras ound at that time which was negative for DVT. She states that she is irma- menopausal. She has had some increased blood pressure over the last week which her doctor is currently monitoring. She is not on any medication for high blood pressure. No known history of high cholesterol. No diabetes. She is not a smoker. No known family history of heart disease or blood clots. Denies any history of peptic ulcer disease or gastritis. Denies any spicy foods. No alcohol use tonight. No burning sensation or sour taste. No abdominal pain. Related Data Home Medications Medication Instructions Recorded Confirmed acetaminophen 500 mg tablet 500 mg PO Q6H PRN 04/23/22 05/25/23 (Tylenol Extra Strength) ibuprofen 200 mg capsule 600 mg PO Q6H PRN 04/23/22 05/25/23 sumatriptan succinate 100 mg tablet See Rx Instructions PO .COMPLEX 07/17/22 05/25/23 #14 tabs capsaicin 0.025 % topical cream 1 applic topical TID #25 grams 03/15/23 05/25/23 (Arthritis-Muscle (capsaicin)) lidocaine HCl 4 % topical patch 1 patch topical DAILY PRN pain #30 03/15/23 05/25/23 ea lorazepam 1 mg tablet (Ativan) 1 mg PO TID PRN #10 tabs 05/25/23 Previous Rx's Medication Instructions Recorded sumatriptan succinate 100 mg tablet See Rx Instructions PO .COMPLEX 07/17/22 #14 tabs capsaicin 0.025 % topical cream 1 applic topical TID #25 grams 03/15/23 (Arthritis-Muscle (capsaicin)) lidocaine HCl 4 % topical patch 1 patch topical DAILY PRN pain #30 03/15/23 ea lorazepam 1 mg tablet (Ativan) 1 mg PO TID PRN #10 tabs 05/25/23 Allergies Allergy/AdvReac Type Severity Reaction Status Date / Time promethazine [From Phenergan] Allergy Severe Anaphylaxis Unverified 05/24/23 10:32 meclizine [From Antivert] Allergy Anaphylaxis Unverified 05/24/23 10:32 hydrocodone bitartrate AdvReac hallucinati Verified 05/24/23 10:32 [From Vicodin] ons oxycodone HCl [From Percocet] AdvReac vomiting Verified 05/24/23 10:32 General Stated Complaint: Chest Pain LATASHA: 3 Review of Systems Narrative: Remainder of review of systems otherwise negative except for as noted in the HPI x10. PFSH All Active Problems (Updated 05/25/23 @ 02:56 by Mary Anne Cazares MD) Chest pain (Acute) Anxiety (Chronic) Claudication of right lower extremity (Acute) Crush injury lower leg (Acute) Imra-menopausal (Acute) Migraine headache without aura (Acute) Left cervical radiculopathy (Acute) Neck pain, chronic (Acute) Medical History Abnormal uterine bleeding Stopped with initiation of Aygestin. Plans to switch to continuous OCPs Epiglottitis Odynophagia but able .. with effort .. Pharyngitis, acute Trial ABx due to out of proportion pain/tenderness/swelling Acute viral pharyngitis Onset, 11/23 .. ED, 11/24 Lateral epicondylitis, left elbow Singers' nodes (08/18/14) Hoarseness (08/18/14) Family history of colon cancer (06/18/14) Mother, MGF, Mat aunt 5yr screening cycle Esophageal reflux (09/30/14) Tubular adenoma (~04/27/22) Fam Hx colon ca: Mother, MGClarence, Pj aunt 5yr screening cycle Vaginal enterocele Attention and concentration deficit Hx medication, but lifestyle changes to accommodate most needs. Irritability and anger Anxiety state (04/12/14) Depressive disorder Vaginal prolapse without uterine prolapse Urinary frequency Surgical History History of colonoscopy with polypectomy (~04/27/22) Biopsy of breast (~1991) Benign cyst Family History Mother , December 2022 Colon cancer Anxiety Grandfather Colon cancer maternal Maternal Aunt Colon cancer Sister Alcohol use disorder Social History Smoking/Tobacco Use Status: Never Smoking risk assessment performed?: Yes Alcohol Intake: current Alcohol Intake frequency: 3 or more drinks per day Drug use: Never Substance use type: does not use Adopted: No Caregiver/Support person: No Foster care: No Household members: spouse and children Housing: house Number of Children: 3 number of grandchildren: 1 Communication Needs: None Education Level: master's degree current occupation: Unemployed Pets and animals: Yes Pets and animals: cat(s) and farm animals Sexually active: Yes Do you think of yourself as: straight/heterosexual Current gender identity: female What is your relationship status?: How often do you talk on the phone with friends or family?: twice per week How often do you get together with friends or relatives?: once per week Do you belong to any clubs or organized social groups?: no Panel score (0-1 are the most socially isolated patients): 2 What type of physical activity do you participate in: none Special lorena needs: No (Yazidism and Presybeterian) Seatbelt use: always Helmet use: Yes Drive intox or ride w/intox hook up driver: No Working smoke detector in home: Yes Carbon monox detector in home: Yes Do you feel safe at home: Yes Do you feel safe in your relationship?: Yes Female Reproductive History Menstrual Age of Menarche: 15 Duration of menses: other History History 3 Para Hx # Term Pregnancies 3 Multiple births Hx # Pregnancies Ectopic pregnancies AB induced Hx Number of Living Children AB spontaneous Past Pregnancies Del. Date GA/Weeks # Preg Succ Route Wgt Sex Labor Lgth Anesth esia Location [facility] 11/23/92 38 Yes vaginal 2721.554 g Female [facility] 01/18/97 40 Yes vaginal Male [facility] 11/17/07 40 Yes vaginal 3175.147 g Female [facility] Exam Narrative Exam Narrative: General: non-toxic, no respiratory distress, comfortable HEENT: normocephalic, atraumatic, lids and lashes normal, PERRL, EOMI, anicteric sclera, no conjunctival injection, moist oral mucosa Card: regular rate and rhythm, S1S2, no murmurs, rubs, or gallops Lungs: good air entry, clear to auscultation bilaterally. no wheezes, rales, rhonchi, or retractions Abd: soft, non-tender, non-distended, normal bowel sounds, no rebound or guarding, no peritoneal signs Musculoskeletal: full range of motion of arms and legs, no tenderness to palpation. no clubbing, cyanosis, or edema Neurologic: appropriate for age, strength normal Psych: alert and oriented Skin: no petechiae, no lesions, warm and dry Course Vital Signs Vital signs: Vital Signs Temperature 37.1 C 05/25/23 00:24 Pulse 948 H 05/25/23 00:24 Respiratory Rate 16 05/25/23 00:24 Blood Pressure 127/76 05/25/23 00:24 Pulse Oximetry 99 05/25/23 00:24 Temperature 37.1 C 05/25/23 00:24 Temperature Source Oral 05/25/23 00:24 Pulse 948 H 05/25/23 00:24 Respiratory Rate 16 05/25/23 00:24 Respiratory Effort Normal 05/25/23 00:29 Respiratory Depth Normal 05/25/23 00:29 Respiratory Pattern Normal 05/25/23 00:29 Blood Pressure 127/76 05/25/23 00:24 Pulse Oximetry 99 05/25/23 00:24 Oxygen Delivery Method Room Air 05/25/23 00:24 Oxygen Flow Rate 0 05/25/23 00:24
[2023-05-25] MEDS: Mylanta Suspension 30 ML CUP PO (00:56)
[2023-05-25] MEDS: Lidocaine 2% Viscous 1 ML Solution 15 ML PO (00:57)
[2023-05-25] MEDS: LORazepam 2 MG/ML VIAL 1 MG IVP (01:03)
[2023-05-25 01:05] LABS: ALT 51 U/L (14-59); AST 28 U/L (15-37); Albumin 3.5 g/dL (3.4-5.0); Alkaline Phosphatase 85 U/L (46-116); BUN 16 mg/dL (7-18); Bilirubin, Total 0.2 mg/dL (0.2-1.0); CREATININE 0.8 mg/dL (0.55-1.02); Calcium 9.2 mg/dL (8.5-10.1); Chloride 103 mmol/L (98-107); Estimated GFR 89.15 (mL/min/1.73m2); Glucose 110 mg/dL (74-106); Magnesium 2.1 mg/dL (1.8-2.4); Potassium 3.5 mmol/L (3.5-5.1); Sodium 138 mmol/L (136-145); Total Protein 7.2 g/dL (6.4-8.2); Troponin I < 50 ng/L (<or=60)
[2023-05-25 01:23] LABS: D-Dimer 291 ng/mlFEU (<500)
[2023-05-25 01:28] LABS: TSH (W/Ref FT4) 5.18 uIU/mL (0.36-3.74)
[2023-05-25 01:46] LABS: FREE T4 0.79 ng/dL (0.76-1.46)
--- NOTE | 2023-05-25 02:15 | DI.VRAD_ITS ---
PROCEDURE INFORMATION: Exam: XR Chest Exam date and time: 05/25/2023 1:42 AM Age: 52 years old Clinical indication: Shortness of breath TECHNIQUE: Imaging protocol: Radiologic exam of the chest. Views: 1 view. COMPARISON: CR XR CERVICAL SPINE COMP 4-5V 05/11/2022 1:16 PM FINDINGS: Lungs: Unremarkable. No consolidation. Pleural spaces: Unremarkable. No pleural effusion. No pneumothorax. Heart/Mediastinum: Unremarkable. No cardiomegaly. Bones/joints: Unremarkable. IMPRESSION: No acute findings. Dictated and Authenticated by: Jesús Moore MD. Ordering:VICK North MD
[2023-05-25 03:49] LABS: Troponin I < 50 ng/L (<or=60)
--- NOTE | 2023-05-25 14:22 | NUR.NOTE ---
Accessed chart to view discharge instruction.Nursing Note:
--- NOTE | 2023-05-25 14:24 | NUR.NOTE ---
Nursing Note: Patient called reporting she had received another patients discharge instructions. Patient advised to shred discharge instructions. I read patient her instructions as well as her prescriptions that was sent to [facility]
== END 2023-05-25 04:05 | disposition home or self-care (01) ==
LOC: ER 04:23
PROVIDERS: Emergency Provider Emergency Medicine Emergency Medical Services; PCP Student in an Organized Health Care Education/Training Program
DX: R07.9 Chest pain, unspecified (principal); R00.0 Tachycardia, unspecified; F41.9 Anxiety disorder, unspecified
CPT/HCPCS: 36415; 80053; 93005; 96374; 99283; 71045; 83735; 84439; 84443; 84484; 85025; 85379; 93010; J2060

== ENCOUNTER 2023-05-25 17:37 | Outpatient (REF) | payer MEDICAID, SELFPAY ==
[2023-05-25 16:46] LABS: Lab Add On Test DONE
[2023-05-25 17:04] LABS: Iron 69 ug/dL (50-170); Total Iron Binding Capacity 292 ug/dL (250-450); Transferrin Sat 24 % (15-50)
[2023-05-25 17:31] LABS: Ferritin 21 ng/mL (8-252); Vitamin B12 366 pg/mL (193-986)
[2023-05-25 17:32] LABS: Folate > 20.0 ng/mL (8.6-20.0)
== END 2023-05-25 17:38 | disposition home or self-care (01) ==
LOC: LBN 17:37
PROVIDERS: PCP Student in an Organized Health Care Education/Training Program; Visit Provider Student in an Organized Health Care Education/Training Program
DX: D64.9 Anemia, unspecified (principal); E46 Unspecified protein-calorie malnutrition; Z91.89 Other specified personal risk factors, not elsewhere classified
CPT/HCPCS: 82607; 82728; 82746; 83540; 83550

== ENCOUNTER → 2023-06-10 01:53 | Outpatient (CLI) | payer MEDICAID, SELFPAY ==
--- NOTE | 2023-06-10 07:00 | DI.US_ITS ---
Exam(s) US CAROTID EXAM: US CAROTID CLINICAL HISTORY: near syncope, ? plaque, r55. TECHNIQUE: Ultrasound carotids performed using grayscale, color-flow, and spectral Doppler imaging. COMPARISON: No exams were available for comparison FINDINGS: RIGHT CAROTID ARTERY: Plaque: None identified sonographically. Velocity elevation: None. LEFT CAROTID ARTERY: Plaque: None identified sonographically. Velocity elevation: None. VERTEBRAL ARTERIES: Antegrade flow. Measurements: R Bulb: 98.4cm/s PS / 30.8cm/s ED R CCA: 118.5cm/s PS / 38.1cm/s ED R ECA: 120.3cm/s PS / 29cm/s ED R ICA Prox: 98.4cm/s PS / 34.5cm/s ED R ICA Mid: 116.6cm/s PS / 47.3cm/s ED R ICA Distal: 118.5cm/s PS /36.3cm/s ED R Vert: 58.7cm/s PS / 25.6cm/s ED R SVR: 1 R DVR: 1 L Bulb: 103.9cm/s PS / 36.3cm/s ED L CCA: 116.6cm/s PS / 43.6cm/s ED L ECA: 118.5cm/s PS / 27.2cm/s ED L ICA Prox: 111.2cm/s PS / 50.9cm/s ED L ICA Mid: 103.9cm/s PS / 49.1cm/s ED L ICA Distal: 123.2cm/s PS / 59.7cm/s ED L Vert: 66cm/s PS / 26.8cm/s ED L SVR: 1.1 L DVR: 1.4 IMPRESSION: No evidence for hemodynamically significant carotid stenosis. Criteria for Carotid Stenosis: Normal: ICA PSV <125 cm/s no plaque or intimal thickening is visible. <50% stenosis: ICA PSV <125 cm/s and plaque or intimal thickening is visible. 50-69% stenosis: ICA PSV is 125-250 cm/s and plaque is visible. >70% stenosis to near occlusion: ICA PSV >250 cm/s with visible plaque and luminal narrowing. DATA REPOSITORY:
--- NOTE | 2023-06-10 07:08 | DI.US_ITS ---
Exam(s) US THYROID EXAM: US THYROID CLINICAL HISTORY: Near syncope,r55,new finding hypothyroid. TECHNIQUE: Ultrasound thyroid performed using standard protocol. COMPARISON: No exams were available for comparison FINDINGS: ISTHMUS: 3 mm RIGHT LOBE: Size: 4.3 x 1.4 x 1.8 cm Echogenicity: Normal. Vascularity: Normal. Nodules: No suspicious nodules are present. LEFT LOBE: Size: 3.7 x 1.2 x 1.7 cm Echogenicity: Normal. Vascularity: Normal. Nodules: No suspicious nodules are present. OTHER FINDINGS: None. IMPRESSION: Normal sonographic appearance of the thyroid gland. DATA REPOSITORY:
== END ==
PROVIDERS: PCP Student in an Organized Health Care Education/Training Program; Visit Provider Student in an Organized Health Care Education/Training Program
DX: R55 Syncope and collapse (principal)
CPT/HCPCS: 76536; 93880

== ENCOUNTER 2023-07-10 11:04 | Outpatient (CLI) | payer MEDICAID, SELFPAY | END 2023-07-10 11:05 | disposition home or self-care (01) | LOC: CARDOPNVT 11:04 | PROVIDERS: PCP Student in an Organized Health Care Education/Training Program; Visit Provider Student in an Organized Health Care Education/Training Program | DX: R00.2 Palpitations (principal); I47.10 Supraventricular tachycardia, unspecified | CPT/HCPCS: 93246 ==

== ENCOUNTER 2023-07-22 13:51 | Outpatient (CLI) | payer SELFPAY ==
[2023-07-22 10:38] LABS: Calculated LDL 138 mg/dL (<100); Cholesterol 239 mg/dL (<200); HDL Cholesterol 86 mg/dL (40-60); TSH (W/Ref FT4) 1.34 uIU/mL (0.36-3.74); Triglyceride 77 mg/dL (<150)
[2023-07-22 11:02] LABS: Iron 71 ug/dL (50-170)
[2023-07-22 17:29] LABS: T3,Free 3.9 pg/mL (2.8-5.3)
[2023-07-23 11:17] LABS: Mumps Antibody IgG Positive (See Note); Rubella IgG Ab (UVM) Positive (See Note)
[2023-07-23 13:31] LABS: Measles IgG Antibody Equivocal (See Note)
== END 2023-07-22 13:52 | disposition home or self-care (01) ==
LOC: LBO 13:51
PROVIDERS: PCP Student in an Organized Health Care Education/Training Program; Visit Provider Nurse Practitioner Family
DX: Z02.1 Encounter for pre-employment examination (principal); E46 Unspecified protein-calorie malnutrition; Z91.89 Other specified personal risk factors, not elsewhere classified; Z13.220 Encounter for screening for lipoid disorders
CPT/HCPCS: 36415; 80061; 83540; 84439; 84443; 84481; 86735; 86762; 86765

== ENCOUNTER 2023-08-02 06:19 | Outpatient (CLI) | payer MEDICAID, SELFPAY ==
--- NOTE | 2023-08-02 09:03 | ZIOP_ITS ---
Date of service: 08/02/23 Time of Service: 09:03 14 Day Pricing Consultant Referring Provider:: Shasta Indications:: Palpitations Note: 1. The underlying rhythm is sinus, rate range 53 to 152 bpm with average of 78 bpm. 2. Several PACs with few runs of supraventricular tachycardia, longest 18 beats, fastest at 152 bpm. 3. No PVCs. Some aberrantly conducted PACs were called PVCs by software. 4. No pauses. No atrial fibrillation. Impression: Paroxysmal supraventricular tachycardia
== END 2023-08-02 06:20 | disposition home or self-care (01) ==
LOC: CARDOPNVT 06:19
PROVIDERS: PCP Student in an Organized Health Care Education/Training Program; Visit Provider Internal Medicine Interventional Cardiology
DX: R00.2 Palpitations (principal); R07.9 Chest pain, unspecified; I47.10 Supraventricular tachycardia, unspecified

== ENCOUNTER → 2023-09-23 02:02 | Outpatient (CLI) | payer MEDICAID, SELFPAY ==
--- NOTE | 2023-09-23 08:00 | DI.RAD_ITS ---
Exam(s) XR CERVICAL SPINE COMP 4-5V EXAM: XR CERVICAL SPINE COMP 4-5V CLINICAL HISTORY: eval neck arthritis,neck pain, m54.2. TECHNIQUE: 2D digital imaging was performed. Five images were obtained. AP, odontoid, lateral and bi lateral oblique images were obtained. COMPARISON: CR XR CERVICAL SPINE COMP 4-5V from 05/11/2022 FINDINGS: The odontoid is intact. The lateral masses are well aligned. There is straightening of the normal ce rvical lordosis. There are anterior osteophytes and disc space narrowing at C5-6 and C6-7 which appe ars stable. Remaining disc levels are unremarkable. No acute fracture or subluxation is present. Th ere is mild narrowing of the neural foramen bilaterally at C5-6 and C6-C7. The cervical thoracic junc tion is well maintained. The prevertebral soft tissues are unremarkable. Lung apices are clear. IMPRESSION: Degenerative changes in the cervical spine at C5-6 and C6-C7 as described above. If there is concern for radicular symptoms, an MRI should be considered for further evaluation. DATA REPOSITORY: RADIATION DOSE DELIVERED:
== END ==
PROVIDERS: PCP Student in an Organized Health Care Education/Training Program; Visit Provider Student in an Organized Health Care Education/Training Program
DX: M50.022 Cervical disc disorder at C5-C6 level with myelopathy (principal)
CPT/HCPCS: 72050

== ENCOUNTER 2024-02-18 05:50 | Emergency (ER) | payer MEDICAID, SELFPAY ==
[2024-02-18 05:54] VITALS: BP 144/102; PULSE 82; RESP 16; TEMP 36.4; O2SAT 100
--- NOTE | 2024-02-18 06:00 | DI.US_ITS ---
Exam(s) US PELVIS TRANSVAGINAL EXAM: US PELVIS TRANSVAGINAL CLINICAL HISTORY: heavy vaginal bleeding TECHNIQUE: Ultrasound of the pelvis was performed both transabdominal and transvaginal. COMPARISON: US US CAROTID from 06/10/2023 FINDINGS: UTERUS: Measures 9.5 cm length x 3.9 cm AP x 4.7 cm wide. There are no uterine fibroids. Endometrial thickness measures 16 mm which is thickened for this age group. Endometrium also appears somewhat vascular. CERVIX: Nabothian cysts noted RIGHT OVARY: Measures 2 x 1.3 x 1.8 cm Contains a complex cyst measuring 1.0 x 1.1 cm. LEFT OVARY: Not visualized CUL-DE-SAC: No free fluid evident. IMPRESSION: 1. Abnormally thickened endometrium which also appears vascular. Requires close follow-up to rule ou t neoplasm. 2. There is a 10 x 11 mm complex cyst in the right ovary. 3. Left ovary is not seen on this study. No free fluid evident in the pelvis. DATA REPOSITORY:
[2024-02-18 06:24] LABS: Abs Immature Grans 0.01 10^3/uL (0.0-0.06); Absolute Basophil Count 0.03 10^3/uL (0.0-0.2); Absolute Eosinophil Count 0.09 10^3/uL (0.0-0.7); Absolute Lymphocyte Count 1.82 10^3/uL (1.2-3.4); Absolute Monocyte Count 0.59 10^3/uL (0.1-0.8); Absolute Neutrophil Count 2.94 10^3/uL (1.2-6.7); Basophils % 0.5 %; Eosinophils % 1.6 %; HCT 38.3 % (36.0-46.0); HGB 12.8 g/dL (11.2-15.7); Immature Grans % 0.2 %; Lymphocytes % 33.2 %; MCH 32.7 pg (27.0-33.0); MCHC 33.4 % (32.0-36.0); MCV 98 fL (80-95); Monocytes % 10.8 %; Neutrophils % 53.7 %; RBC 3.91 10^6/uL (3.93-5.22); RDW 13.2 % (11.7-14.6); RDW-SD 47.2 fL; WBC 5.48 10^3/uL (4.4-10.8)
--- NOTE | 2024-02-18 06:33 | ED.GENADUL_ITS ---
Discharge Plan Discharge Details Chief Complaint: Abd Prob Primary Care Provider: Ayesha Vegas ED Provider: Ansley Peralta Home Meds and New Rx's Prescriptions: No Action ibuprofen 200 mg capsule 600 mg PO Q6H PRN acetaminophen [Tylenol Extra Strength] 500 mg tablet 500 mg PO Q6H PRN escitalopram oxalate [Lexapro] 10 mg tablet 10 mg PO DAILY Qty: 90 1RF Rx Instructions: Trial, with possible increase to 20mg propranolol 10 mg tablet See Rx Instructions PO TID Qty: 90 1RF Rx Instructions: Trial in late afternoon/evening x1 week minimum; may use daily for anxiety with another q6H; max tid orally three times a day multivitamin Tablet 1 tab PO DAILY capsaicin [Arthritis-Muscle (capsaicin)] 0.025 % cream 1 applic topical TID Qty: 25 0RF Rx Instructions: do not wash area for at least 30 min after application diphenhydramine HCl [Benadryl] 25 mg capsule 50 mg PO QHS PRN Patient Comments: Pt reports taking 2 Benadryl's when she has a panic attack, but is out of Ativan.HE levothyroxine 25 mcg capsule 25 mcg PO DAILY Qty: 90 3RF Rx Instructions: Continue. May use capsules or tablets which ever is covered by insurance. HPI General Mode of arrival: ambulatory . Date/Time Provider Initiated Documentation: 02/18/24 05:52 . Limitations to Documentation: no limitations . Information obtained by: patient . HPI Narrative: 53yo M presenting with heavy vaginal bleeding. Perimenopausal. Current menst rual period started 3 weeks ago, light to moderate over that period of time. Last night began to have heavy vaginal bleeding, soaking through a super tampon in less than an hour, some grape sized clots. Diffuse mild crampy abdominal pain. No sharp or focal pain. No lightheadedness. No other unusual vaginal discharge. No vaginal trauma. Has has similar episodes in the past but never this bad. She is otherwise in her usual state of health with no fevers, chills, rash, naseua, vomiting, chest pain, shortness of breath, or other concerns. Related Data Home Medications ?Medication ?Instructions ?Recorded ?Confirmed acetaminophen 500 mg tablet 500 mg PO Q6H PRN 04/23/22 02/18/24 (Tylenol Extra Strength) ibuprofen 200 mg capsule 600 mg PO Q6H PRN 04/23/22 02/18/24 capsaicin 0.025 % topical cream 1 applic topical TID #25 grams 03/15/23 02/18/24 (Arthritis-Muscle (capsaicin)) escitalopram oxalate 10 mg tablet 10 mg PO DAILY #90 tabs 05/25/23 02/18/24 (Lexapro) propranolol 10 mg tablet See Rx Instructions PO TID #90 tabs 06/25/23 02/18/24 levothyroxine 25 mcg capsule 25 mcg PO DAILY #90 caps 07/02/23 02/18/24 multivitamin 1 tab PO DAILY 08/13/23 02/18/24 diphenhydramine HCl 25 mg capsule 50 mg PO QHS PRN 09/19/23 02/18/24 (Benadryl) Previous Rx's ?Medication ?Instructions ?Recorded capsaicin 0.025 % topical cream 1 applic topical TID #25 grams 03/15/23 (Arthritis-Muscle (capsaicin)) escitalopram oxalate 10 mg tablet 10 mg PO DAILY #90 tabs 05/25/23 (Lexapro) propranolol 10 mg tablet See Rx Instructions PO TID #90 tabs 06/25/23 levothyroxine 25 mcg capsule 25 mcg PO DAILY #90 caps 07/02/23 Allergies Allergy/AdvReac Type Severity Reaction Status Date / Time promethazine (From Phenergan) Allergy Severe Anaphylaxis Unverified 02/18/24 06:00 meclizine (From Antivert) Allergy Anaphylaxis Unverified 02/18/24 06:00 hydrocodone bitartrate (From AdvReac hallucinati Verified 02/18/24 06:00 Vicodin) ons oxycodone HCl (From Percocet) AdvReac vomiting Verified 02/18/24 06:00 General Stated Complaint: Abd Prob LATASHA: 3 Review of Systems Narrative: see HPI Exam Narrative Exam Narrative: General: Alert, well appearing, well nourished, in no acute distress. Head: Normocephalic, atraumatic Neck: Trachea midline, ?Neck supple. ENT: ?MMM.? No oropharygeal lesions or exudate. Cardiac: ?RRR, no murmurs appreciated Resp: No respiratory distress. CTAB. Abd: ?Soft, non-distended, nontender : ?No suprapubic tenderness. No CVA tenderness. Pelvic: Pt declined Extremities: ?No deformities.? No peripheral edema. Neurologic: GCS 15. ? Moves all extremities freely against gravity Course Vital Signs Vital signs: Vital Signs Temperature 36.4 C 02/18/24 05:54 Pulse 82 02/18/24 05:54 Respiratory Rate 16 02/18/24 05:54 Blood Pressure 144/102 H 02/18/24 05:54 Pulse Oximetry 100 02/18/24 05:54 Temperature 36.4 C 02/18/24 05:54 Temperature Source Oral 02/18/24 05:54 Pulse 82 02/18/24 05:54 Respiratory Rate 16 02/18/24 05:54 Respiratory Effort Normal, Non-Labored 02/18/24 06:04 Blood Pressure 144/102 H 02/18/24 05:54 Blood Pressure Position Sitting 02/18/24 05:54 Pulse Oximetry 100 02/18/24 05:54 Oxygen Delivery Method Room Air 02/18/24 05:54 Oxygen Flow Rate 0 02/18/24 05:54 Pain Level 4 02/18/24 05:54 Medical Decision Making 53yo M presenting with heavy vaginal bleeding. Perimenopausal. Current menstrual period started 3 weeks ago, light to moderate over that period of time. Last night began to have heavy vaginal bleeding, soaking through a super tampon in less than an hour, some grape sized clots. Diffuse mild crampy abdominal pain. Vital signs reassuring. No abdominal tenderness on exam. Not septic. Not in shock. Discussed with patient, she is amenable to having a pelvic ultrasound however declines pelvic exam at this time (with no abdominal pain and reliable historian, I have no strong objection to forgoing the pelvic a t this time). Labs reviewed as below, CBC reassuring with no leukocytosis or anemia, negative. CMP pending. Signed out to oncoming physician, plan to followup CMP and ultrasound. Lab Data Lab results reviewed: Yes I reviewed the patient's lab results. Labs: Laboratory Tests Range/Units 02/18/24 02/18/24 06:15 06:42 WBC (4.4-10.8) 10^3/uL 5.48 RBC (3.93-5.22) 10^6/uL 3.91 L Hgb (11.2-15.7) g/dL 12.8 Hct (36.0-46.0) % 38.3 MCV (80-95) fL 98 H MCH (27.0-33.0) pg 32.7 MCHC (32.0-36.0) % 33.4 RDW (11.7-14.6) % 13.2 Plt Count (130-400) 10^3/uL MPV (8.0-11.0) fL Immature Gran % % 0.2 Neutrophils % % 53.7 Lymphocytes % % 33.2 Monocytes % % 10.8 Eosinophils % % 1.6 Basophils % % 0.5 Nucleated RBC % (0.0-0.3) % 0.0 Absolute Neutrophils (1.2-6.7) 10^3/uL 2.94 Absolute Lymphocytes (1.2-3.4) 10^3/uL 1.82 Absolute Monocytes (0.1-0.8) 10^3/uL 0.59 Absolute Eosinophils (0.0-0.7) 10^3/uL 0.09 Absolute Basophils (0.0-0.2) 10^3/uL 0.03 RBC Morphology Normal Sodium Cancelled Potassium Cancelled Chloride Cancelled Carbon Dioxide Cancelled Anion Gap Cancelled BUN Cancelled Creatinine Cancelled Est GFR (CKD-EPI 2020) Cancelled Glucose Cancelled Calcium Cancelled Total Bilirubin Cancelled AST Cancelled ALT Cancelled Alkaline Phosphatase Cancelled Total Protein Cancelled Albumin Cancelled Serum HCG, Qual Cancelled Negative Quality:SDOH Health Related Social Needs: No Data to Display PFSH All Active Problems (Updated 10/17/23 @ 15:14 by Leila Hewitt) Abnormal tympanic membrane of left ear (Acute) Acute pain of left ear (Acute) Sinus pain (Acute) Painful L>R, max sinus, upper jaw/tooth-ache pain, neuropathic cheek/facial pain Panic reaction (Acute) Atypical chest pain (Acute) Hypothyroid (Chronic) New finding, low TSH, 05/25/23 (my lab order, but pulled during ED visit) Vertigo (Acute) acute a few days ago, with sudden/terrible onset.. now constant/uncomfortable Crush injury lower leg (Acute) Irma-menopausal (Acute) Migraine headache without aura (Acute) Left cervical radiculopathy (Acute) Neck pain, chronic (Acute) Medical History Claudication of right lower extremity Abnormal uterine bleeding Stopped with initiation of Aygestin. Plans to switch to continuous OCPs 01/01/23 Epiglottitis Odynophagia but able .. with effort .. Pharyngitis, acute Trial ABx due to out of proportion pain/tenderness/swelling Acute viral pharyngitis Onset, 11/23 .. ED, 11/24 Lateral epicondylitis, left elbow Singers' nodes (08/18/14) Hoarseness (08/18/14) Family history of colon cancer (06/18/14) Mother, MGF, Mat aunt 5yr screening cycle Esophageal reflux (09/30/14) Tubular adenoma (~04/27/22) Fam Hx colon ca: Mother, MGF, Mat aunt 5yr screening cycle Attention and concentration deficit Hx medication, but lifestyle changes to accommodate most needs. Irritability and anger Anxiety state (04/12/14) Depressive disorder Vaginal prolapse without uterine prolapse Urinary frequency Surgical History History of colonoscopy with polypectomy (~04/27/22) Biopsy of breast (~1991) Benign cyst Family History Mother , December 2022 Colon cancer Anxiety Grandfather Colon cancer maternal Maternal Aunt Colon cancer Sister Alcohol use disorder Social History Smoking/Tobacco Use Status: Never Smoking risk assessment performed?: Yes Alcohol Intake: current Alcohol Intake frequency: 3 or more drinks per day Drug use: Never Substance use type: does not use Adopted: No Caregiver/Support person: No Foster care: No Household members: spouse and children Housing: house Number of Children: 3 number of grandchildren: 1 Communication Needs: None Education Level: master's degree current occupation: Unemployed Pets and animals: Yes Pets and animals: cat(s) and farm animals Sexually active: Yes Do you think of yourself as: straight/heterosexual Current gender identity: female What is your relationship status?: How often do you talk on the phone with friends or family?: twice per week How often do you get together with friends or relatives?: once per week Do you belong to any clubs or organized social groups?: no Panel score (0-1 are the most socially isolated patients): 2 What type of physical activity do you participate in: none Special lorena needs: No (Pentecostal and Adventism) Seatbelt use: always Helmet use: Yes Drive intox or ride w/intox driver lifter of sanitation truck: No Working smoke detector in home: Yes Carbon monox detector in home: Yes Do you feel safe at home: Yes Do you feel safe in your relationship?: Yes Female Reproductive History Menstrual Age of Menarche: 15 Duration of menses: other History History 3 Para Hx # Term Pregnancies 3 Multiple births Hx # Pregnancies Ectopic pregnancies AB induced Hx Number of Living Children AB spontaneous Past Pregnancies Del. Date GA/Weeks # Preg Succ Route Wgt Sex Labor Lgth Anesth esia Location Prov Complic 11/23/92 38 Yes vaginal 2721.554 g Female Asaf sas 01/18/97 40 Yes vaginal Male [place] 11/17/07 40 Yes vaginal 3175.147 g Female [facility]
[2024-02-18 06:50] LABS: Diff Comment Diff Reviewed; RBC Morphology Normal
[2024-02-18 07:20] LABS: HCG Qual (Serum) Negative
[2024-02-18 07:25] LABS: ALT 17 U/L (14-59); AST 10 U/L (15-37); Albumin 3.7 g/dL (3.4-5.0); Alkaline Phosphatase 70 U/L (46-116); Anion Gap 6.1 mmol/L (3-11); BUN 14 mg/dL (7-18); Bilirubin, Total 0.33 mg/dL (0.2-1.0); CO2 27.9 mmol/L (21.0-32.0); CREATININE 0.8 mg/dL (0.55-1.02); Calcium 8.8 mg/dL (8.5-10.1); Chloride 105 mmol/L (98-107); Glucose 94 mg/dL (74-106); Potassium 3.7 mmol/L (3.5-5.1); Sodium 139 mmol/L (136-145); Total Protein 7.1 g/dL (6.4-8.2)
[2024-02-18 08:44] LABS: Bilirubin Negative (Negative); Blood Moderate (Negative); Clarity Clear (Clear); Glucose Negative (Negative); Ketones Negative (Negative); Leukocyte Esterase Negative (Negative); Nitrite Negative (Negative); Urobilinogen 0.2 mg/dL (Up to 0.2); pH 6.5 (5-8)
[2024-02-18 08:53] LABS: Bacteria Negative HPF (Negative); C & S Indicated? No; Casts Negative LPF (Negative); Crystals Negative HPF (Negative); Epithelial Cells Rare HPF (Negative); Mucus Negative (Negative); RBC 20-50 HPF (0-2); WBC 0-2 HPF (0-5)
[2024-02-18 08:59] VITALS: BP 130/78; PULSE 69; RESP 16; TEMP 36.3; O2SAT 98
[2024-02-18] MEDS: Ketorolac 15 MG/ML VIAL IVP (09:05)
--- NOTE | 2024-02-18 10:24 | ED.PROG_ITS ---
Date of service: 02/18/24 Time of Service: 10:24 Medical Decision Making Patient was signed out to me by my colleague. Please refer to her HPI, physical exam, assessment and plan. At time of signout we are awaiting ultrasound results. Vital signs remained stable, hemoglobin stable, no significant anemia. Laboratory workup benign otherwise. Ultrasound does show evidence of a thickened endometrium diffusely, small complex cyst in the right ovary. At this time we will reach out to OB to facilitate follow-up for the thickened endometrium and the dysfunctional uterine bleeding. Will give 15 mg of IV Toradol here to help with the bleeding. Patient is otherwise stable for discharge. Discussed the case with Dr. Becker, she will follow-up closely with the patient in the next 1 to 2 days. I have extensively reviewed the treatment plan and discharge instructions with the patient. I have addressed all patient concerns at this time. The patient was made aware of what symptoms to monitor for that would warrant a return to the emergency department. Discussed the plan with the patient, they demonstrate verbal understanding and agreement with our assessment and plan at this time. The documentation in this chart was dictated using [employer] dictation software. Please excuse any dictation errors. FINDINGS: UTERUS: Measures 9.5 cm length x 3.9 cm AP x 4.7 cm wide. There are no uterine fibroids. Endometrial thickness measures 16 mm which is thickened for this age group. Endometrium also appears somewhat vascular. CERVIX: Nabothian cysts noted RIGHT OVARY: Measures 2 x 1.3 x 1.8 cm Contains a complex cyst measuring 1.0 x 1.1 cm. LEFT OVARY: Not visualized CUL-DE-SAC: No free fluid evident. IMPRESSION: 1. Abnormally thickened endometrium which also appears vascular. Requires close follow-up to rule out neoplasm. 2. There is a 10 x 11 mm complex cyst in the right ovary. 3. Left ovary is not seen on this study. No free fluid evident in the pelvis. DATA REPOSITORY: Quality:SDOH Health Related Social Needs: No Data to Display Sign Out Sign Out Data: Sign Out Comment: perimenopauseal, heavy vaginal bleeding. pending US, UA, CMP Last updated by Ansley Peralta MD at 02/18/24 07:25 Discharge Plan Disposition Patient Disposition: Home Condition: Good Discharge Details Clinical Impression: DUB (dysfunctional uterine bleeding) Primary Care Provider: Ayesha Vegas ED Provider: Esteban Mosqueda Home Meds and New Rx's Prescriptions: No Action ibuprofen 200 mg capsule 600 mg PO Q6H PRN acetaminophen [Tylenol Extra Strength] 500 mg tablet 500 mg PO Q6H PRN escitalopram oxalate [Lexapro] 10 mg tablet 10 mg PO DAILY Qty: 90 1RF Rx Instructions: Trial, with possible increase to 20mg propranolol 10 mg tablet See Rx Instructions PO TID Qty: 90 1RF Rx Instructions: Trial in late afternoon/evening x1 week minimum; may use daily for anxiety with another q6H; max tid orally three times a day multivitamin Tablet 1 tab PO DAILY capsaicin [Arthritis-Muscle (capsaicin)] 0.025 % cream 1 applic topical TID Qty: 25 0RF Rx Instructions: do not wash area for at least 30 min after application diphenhydramine HCl [Benadryl] 25 mg capsule 50 mg PO QHS PRN Patient Comments: Pt reports taking 2 Benadryl's when she has a panic attack, but is out of Ativan.HE levothyroxine 25 mcg capsule 25 mcg PO DAILY Qty: 90 3RF Rx Instructions: Continue. May use capsules or tablets which ever is covered by insurance. Discharge Instructions Instructions: Absent or irregular periods Additional Instructions: At this time your laboratory blood work is stable. Your blood levels are stable. You do have thickening of your endometrium which will require further evaluation by your obstetrics die casting machine operator. We have placed a referral on your behalf. Please follow-up closely with them for reassessment. Please take 800 mg of ibuprofen every 6 hours. The obstetrics die casting machine operator office will call you shortly for an appointment. If you notice any worsening of your symptoms, or any new symptoms such as vomiting, diarrhea, fever, chills, shortness of breath, chest pain, numbness, weakness, or fainting , please return immediately to the emergency department for reevaluation. Please follow up with your primary care provider as soon as possible for reassessment and reevaluation. As always, it was a pleasure participating in your medical care today. Referrals: Opal Olson MD [ [facility] STAFF PHYSICIAN] - Angie Reynoso DO [OSTEOPATHIC DOCTOR] - Ayesha Vegas DO [Primary Care Provider] - Marisa Veronica MD [ [facility] STAFF PHYSICIAN] -
[2024-02-18 11:02] VITALS: BP 119/80; PULSE 69; RESP 16; TEMP 37; O2SAT 99
== END 2024-02-18 11:02 | disposition home or self-care (01) ==
PROVIDERS: Student in an Organized Health Care Education/Training Program; Emergency Provider Student in an Organized Health Care Education/Training Program; PCP Student in an Organized Health Care Education/Training Program
DX: N93.8 Other specified abnormal uterine and vaginal bleeding (principal); N83.201 Unspecified ovarian cyst, right side
CPT/HCPCS: 00123; 80053; 96374; 99284; 76830; 76856; 81003; 81015; 84703; 85025; 99283; J1885

== ENCOUNTER 2024-03-30 04:43 | Outpatient (CLI) | payer MEDICAID, SELFPAY ==
[2024-03-30 08:57] LABS: Abs Immature Grans 0.01 10^3/uL (0.0-0.06); Absolute Basophil Count 0.04 10^3/uL (0.0-0.2); Absolute Eosinophil Count 0.22 10^3/uL (0.0-0.7); Absolute Lymphocyte Count 0.63 10^3/uL (1.2-3.4); Absolute Monocyte Count 0.63 10^3/uL (0.1-0.8); Absolute Neutrophil Count 4.39 10^3/uL (1.2-6.7); Basophils % 0.7 %; Eosinophils % 3.7 %; HGB 12.4 g/dL (11.2-15.7); Immature Grans % 0.2 %; Lymphocytes % 10.6 %; MCH 31.8 pg (27.0-33.0); MCHC 32.6 % (32.0-36.0); MCV 97 fL (80-95); MPV 9.3 fL (8.0-11.0); Monocytes % 10.6 %; Neutrophils % 74.2 %; Platelet Count 328 10^3/uL (130-400); RDW 12.9 % (11.7-14.6); RDW-SD 45.9 fL; WBC 5.92 10^3/uL (4.4-10.8)
== END 2024-03-30 04:44 | disposition home or self-care (01) ==
LOC: LBO 04:43
PROVIDERS: Nurse Practitioner Adult Health; PCP Student in an Organized Health Care Education/Training Program; Visit Provider Obstetrics & Gynecology
DX: E03.9 Hypothyroidism, unspecified (principal); R93.89 Abnormal findings on diagnostic imaging of other specified body structures
CPT/HCPCS: 36415; 86850; 86900; 86901; 84443; 85025

== ENCOUNTER 2024-04-01 06:13 | Day surgery (SDC) | payer MEDICAID, SELFPAY ==
[2024-04-01] VITALS (15 sets, daily range): BP systolic 130–155; BP diastolic 84–104; PULSE 63–91; RESP 11–21; TEMP 36.5–36.7; O2SAT 99–100; BMI 28.0
[2024-04-01] MEDS: Lactated Ringers 1,000 ML 125 ML IV (06:54)
--- NOTE | 2024-04-01 09:05 | W.ANESPRE ---
General Info Date of Service Date Performed: 04/01/24 Height: 5 ft 6 in Weight: 78.834 kg Body Mass Index (BMI): 28.0 Surgical Procedure: Operation Date: 04/01/24 08:40 Proposed Procedure Side Surgeon p Dilation & Curettage with Hysteroscopy Angie Reynoso DO Meds Allergies and Home Medications Allergies Allergy/AdvReac Type Severity Reaction Status Date / Time promethazine (From Phenergan) Allergy Severe Anaphylaxis Verified 04/01/24 06:35 meclizine (From Antivert) Allergy Anaphylaxis Verified 04/01/24 06:35 hydrocodone bitartrate (From AdvReac hallucinati Verified 04/01/24 06:35 Vicodin) ons oxycodone HCl (From Percocet) AdvReac vomiting Verified 04/01/24 06:35 Home Medication ?Medication ?Instructions ?Recorded acetaminophen 500 mg tablet 500 mg PO Q6H PRN 04/23/22 (Tylenol Extra Strength) ibuprofen 200 mg capsule 600 mg PO Q6H PRN 04/23/22 capsaicin 0.025 % topical cream 1 applic topical TID #25 grams 03/15/23 (Arthritis-Muscle (capsaicin)) escitalopram oxalate 10 mg tablet 10 mg PO DAILY #90 tabs 05/25/23 (Lexapro) levothyroxine 25 mcg capsule 25 mcg PO DAILY #90 caps 07/02/23 multivitamin 1 tab PO DAILY 08/13/23 diphenhydramine HCl 25 mg capsule 50 mg PO QHS PRN 09/19/23 (Benadryl) norethindrone acetate 5 mg tablet 5 mg PO BID #120 tabs 02/19/24 propranolol 10 mg tablet 10 mg PO BID #60 tabs 03/26/24 sumatriptan succinate 100 mg tablet See Rx Instructions PO .COMPLEX 03/26/24 #14 tabs Current Visit Medications: Current Medications Generic Name Dose Route Start Last Admin Trade Name Freq PRN Reason Stop Dose Admin Ringer's Solution 1,000 mls @ 125 mls/hr 04/01/24 06:00 04/01/24 06:54 IV 04/01/24 23:59 125 mls/hr INFUSION DELIA Administration IV Miscellaneous Supplies 1 each 04/01/24 06:00 Iv Access IV 04/01/24 23:59 DIRECTED DELIA Sodium Chloride 0 ml 04/01/24 06:00 Normal Saline Flush 10 Ml Syr IV 04/01/24 23:59 PRN PRN Sodium Chloride 0 ml 04/01/24 06:00 Normal Saline 10 Ml Vial IJ 04/01/24 23:59 DIRECTED PRN Sterile Water 0 ml 04/01/24 06:00 Water,Injection,Sterile 10 Ml Vial IJ 04/01/24 23:59 DIRECTED PRN PFSH Active Problems Active Problems: Problem Status Onset Code Left-sided headache Acute R51.9 Left facial pain Acute R51.9 Endometrial thickening on ultrasound Acute R93.89 Lymph node enlargement Acute R59.9 Abnormal tympanic membrane of left ear Acute H73.92 Acute pain of left ear Acute H92.02 Sinus pain Acute J34.89 Panic reaction Acute F41.0 Atypical chest pain Acute R07.89 Hypothyroid Chronic E03.9 Vertigo Acute R42 Crush injury lower leg Acute S87.80XA Irma-menopausal Acute N95.1 Migraine headache without aura Acute G43.009 Left cervical radiculopathy Acute M54.12 Neck pain, chronic Acute M54.2, G89.29 Medical History Medical History Claudication of right lower extremity Abnormal uterine bleeding Stopped with initiation of Aygestin. Plans to switch to continuous OCPs 01/01/23 Epiglottitis Odynophagia but able .. with effort .. Pharyngitis, acute Trial ABx due to out of proportion pain/tenderness/swelling Acute viral pharyngitis Onset, 11/23 .. ED, 11/24 Lateral epicondylitis, left elbow Singers' nodes (08/18/14) Hoarseness (08/18/14) Family history of colon cancer (06/18/14) Mother, MGF, Mat aunt 5yr screening cycle Esophageal reflux (09/30/14) Tubular adenoma (~04/27/22) Fam Hx colon ca: Mother, MGF, Mat aunt 5yr screening cycle Attention and concentration deficit Hx medication, but lifestyle changes to accommodate most needs. Irritability and anger Anxiety state (04/12/14) Depressive disorder Vaginal prolapse without uterine prolapse Urinary frequency Surgical History Surgical History History of colonoscopy with polypectomy (~04/27/22) Biopsy of breast (~1991) Benign cyst Tobacco Smoking/Tobacco Use Status: Never Passive smoking exposure: No Alcohol Alcohol Intake: current Alcohol intake frequency: a few times a month Substance Use Substance use: Never Substance use type: does not use Prental History History 3 Para Hx # Term Pregnancies 3 Multiple births Hx # Pregnancies Ectopic pregnancies AB induced Hx Number of Living Children AB spontaneous Past Pregnancies Del. Date GA/Weeks # Preg Succ Route Wgt Sex Labor Lgth Anesthesia Location [facility] 11/23/92 38 Yes vaginal 2721.554 g Female [place] 01/18/97 40 Yes vaginal Male [place] 11/17/07 40 Yes vaginal 3175.147 g Female [facility] Vital Signs and Lab Results Vital Signs Most Recent Vital Signs in EMR: Most Recent Vital Signs Temp Pulse Resp BP Pulse Ox 36.7 C 81 18 148/104 H 100 04/01/24 06:24 04/01/24 06:24 04/01/24 06:24 04/01/24 06:24 04/01/24 06:24 Lab Results Blood Type / Crossmatch: Antibody Screen NEGATIVE 03/30/24 Complete Blood Count: White Blood Count 5.92 10^3/uL (4.4-10.8) 03/30/24 08:45 Red Blood Count 3.90 10^6/uL (3.93-5.22) L 03/30/24 08:45 Hemoglobin 12.4 g/dL (11.2-15.7) 03/30/24 08:45 Hematocrit 38.0 % (36.0-46.0) 03/30/24 08:45 Platelet Count 328 10^3/uL (130-400) 03/30/24 08:45 Complete Metabolic Panel: No Data to Display Liver Function Panel: No Data to Display Coagulation Panel: No Data to Display Cardiac Panel: No Data to Display Arterial Blood Gas: No Data to Display Venous Blood Gas: No Data to Display Pancreas Panel: No Data to Display Thyroid Panel: Thyroid Stimulating Hormone (TSH) 1.50 uIU/mL (0.36-3.74) 03/30/24 08:45 Infectious Disease: No Data to Display Blood Cultures: No Data to Display Toxicology Panel: No Data to Display Panel: No Data to Display Imaging and Studies Imaging and Studies Study information below may be from another EMR and interpreted by another provider. Please see original notes in EMR for more complete details. EKG Summary: 06/06: sinus tach. Carotid Artery Summary:: 06/06: no sig stenosis. Anesthesia Assessment and Plan Anesthesia History Personal History: No History of Anesthesia Complications Family History: No Family History of Anesthesia Complications Exercise Tolerance Exercise Tolerance: Metabolic Equivalents>4 Pertinent Negatives Pertinent Negatives: No Symptoms of GERD, No Major Cardiovascular Symptoms or Complaints, No Major Pulmonary Symptoms or Complaints and No History of CVA/TIA Cardiac & Pulmonary Exam Cardiac Exam: Normal S1/S2 Heart Sounds Pulmonary Exam: Clear Bilateral Breath Sounds and No cough or Cold Implantable Cardiac Device Does patient have a Pacemaker or an ICD?: No Airway Exam Known Difficult Airway: No Mallampati Class: 1 Mouth Opening: Normal (> 3cm) Thyromental Distance: Greater than 3 cm Neck Range of Motion: Full ROM Neck Circumference: Normal Teeth Condition: Normal Dentition ASA Classification ASA Score: ASA 2 Emergency Case?: No NPO Status NPO Status: NPO Clears >2 hours, Solids >8 hours Status Status: Not Per Patient Anesthesia Plan Resuscitation Status: Full Code Anesthesia Technique: General Anesthesia Airway Planned: Natural Airway Monitors Used: Standard Monitors Preoperative Comments:: 53 yo female with dysfunctional uterine bleeding. Sig PMHx: Anxiety/depression (Lexapro), hypothyroid (last TSH 1.5. hasn't taken her levothyroxine in a few weeks), migraine (followed by neurology. propranolol), never smoker, daily EtOH. Previous Anes: - colo, prop, natural airway, no issues. 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 Discussed that will will plan on a GA/Natural airway with LMA as a back up, but ETT is always or back up. She denies and GERD, n/v today.
--- NOTE | 2024-04-01 10:02 | ENDO_PTH ---
PATIENT: Leslie Arias LOC: [facility] U#:[id number] AGE/SX: 53/F ROOM: RE04/01/[address]: Angie Reynoso DO : 1970 BED: DIS: 04/01/2024 SPEC #: [id number] RECD: 04/01/24 12:51 STATUS: ANKUSH REQ #: [id number] AUGUSTIN: 04/01/24 10:[address]: Angie Reynoso DEPT: Surgical Specimen RECD BY: Franci Galvan ENTERED: 04/01/24 12:54 SP TYPE: Endo OTHR DR: Ayesha Vegas DO Tissues: 1 - ENDOCERVICAL BX/CURRETTE 2 - ENDOMETRIUM BX/CURRETTE Procedures: GROSS AND MICRO LEVEL 4 Comments: [id number]
--- NOTE | 2024-04-01 10:18 | W.PM.OP ---
Date of service: 04/01/24 Time of Service: 10:18 Operative Note Operative Note DATE OF PROCEDURE: 04/01/24 PRE-OP DIAGNOSIS: Thickened endometrium, postmenopausal bleeding POST-OP DIAGNOSIS: same PROCEDURE: Hysteroscopy with fractional dilation and curettage SURGEON: Angie Reynoso ANESTHESIA TYPE: General:No Airway Refer to Anesthesia Record ESTIMATED BLOOD LOSS: 50 PATHOLOGY: other (1. Endocervical curettage 2. Endometrial curettage) COMPLICATIONS: None Patient was transported to: PACU Indications: Thickened endometrium and postmenopausal bleeding Findings: Normal-appearing cervix. Uterus midline and mobile. Significantly plush, irregular, polypoid endometrium. Procedure Description: After full informed consent was obtained and negative status verified, patient taken the operating suite with an IV running. She is placed in dorsal supine position and general anesthesia administered. She was then placed in the modified dorsolithotomy position in yellowfin stirrups and prepped and draped in the usual sterile fashion. A timeout was held. Speculum was inserted into the vaginal vault and a single-tooth tenaculum used to grasp the anterior lip of the cervix. Cervical os dilated systematically to the point that a 4 mm hysteroscope could be passed without difficulty. With instillation of normal saline via fluid management system, the entire endometrial cavity was visualized. The entire cavity from the lower uterine segment to the fundus was plush, somewhat irregular, and with multiple polypoid structures. No single discrete polypoid mass was noted. There was no evidence of uterine fibroids. At this point the hysteroscope portion was discontinued with a fluid deficit of 50 cc of normal saline. A fractional dilation and curettage was performed with initial sampling of the endocervix, followed by the endometrium. Modest tissue was returned. At this point the procedure was terminated. Single-tooth tenaculum was removed to the anterior lip of the cervix and puncture sites were noted to be hemostatic. Patient was returned to the dorsal supine position and awoke from anesthesia without difficulty. She was taken to the postanesthesia care unit in stable condition. Findings: [place], polypoid irregular endometrium within normal sized uterus Complications: None apparent Fluids: Crystalloid per anesthesia +50 cc of normal saline fluid deficit at hysteroscope Pathology: 1. Endocervical curetting 2. Endometrial curetting EBL: 50 cc
--- NOTE | 2024-04-01 10:49 | W.ANESPOSTOP ---
Postoperative Evaluation Date, Time and Location Date Performed: 04/01/24 Time Performed: 10:49 Patient Location: PACU Vital Signs Most Recent Imported Vital Signs: Most Recent Vital Signs Temp Pulse Resp BP Pulse Ox 36.5 C 75 21 142/91 H 100 04/01/24 10:40 04/01/24 10:41 04/01/24 10:42 04/01/24 10:41 04/01/24 10:40 Pain Score Most Recent Pain Score: Most Recent Pain Score Pain Level 0 04/01/24 10:40 Assessment Mental Status: Awake (Alert & Oriented to Patient Baseline) Airway and Respiratory Function: Patent airway with normal (patient baseline) respiratory exam Cardiovascular Function: Hemodynamically Stable Hydration Status: Adequately Hydrated Nausea & Vomiting: No Nausea or Vomiting Pain: Pain is tolerable per patient Peripheral Nerve Block: Patient did not receive a nerve block
== END 2024-04-01 06:14 | disposition home or self-care (01) ==
PROVIDERS: PCP Student in an Organized Health Care Education/Training Program; Visit Provider Obstetrics & Gynecology
PROC: 0UDB8ZZ Extraction of Endometrium, Via Natural or Artificial Opening Endoscopic (ICD-10-PCS; CPT 58558; principal; 2024-04-01 08:30)
DX: N95.0 Postmenopausal bleeding (principal); R93.89 Abnormal findings on diagnostic imaging of other specified body structures; E03.9 Hypothyroidism, unspecified; G43.009 Migraine without aura, not intractable, without status migrainosus
CPT/HCPCS: 58558; 81025; 88305; J0131; J1100; J1885; J2250; J2405; J2704

== ENCOUNTER 2024-05-13 00:51 | Outpatient (CLI) | payer MEDICAID, SELFPAY ==
--- NOTE | 2024-05-13 15:15 | DI.MRI_ITS ---
Exam(s) MR BRAIN WO EXAM: MR BRAIN WO CLINICAL HISTORY: left facial pain, worsening left headaches,R51.9 TECHNIQUE: Multiplanar multisequence MRI of the brain was performed. Additional 1 millimeter slice thickness axial SPACE sequence was performed through the brainstem. COMPARISON: No exams were available for comparison FINDINGS: CEREBRAL PARENCHYMA: There is no evidence of intracranial hemorrhage, mass effect, or shift of midline structures. There are no extra-axial fluid collections. Ventricles are not enlarged or shifted. There is no significant focal signal abnormality in the cerebellar hemispheres nor within the samuel, m idbrain, and thalami. There is no abnormal signal abnormality in the periventricular white matter. There is no significant focal signal abnormality evident on diffusion imaging to suggest acute ischem ic event. IAC'S: No evidence of mass in the cerebellopontine angles nor intra canalicular acoustic neuroma. On the axial space sequence the 7 and 8th cranial nerves appear unremarkable within the internal audito ry canals appear There is no obvious asymmetry in the appearance of the trigeminal nerves as they head forward towards Meckel's caves. PITUITARY GLAND: No mass nor parasellar abnormality. No obvious abnormality in the cavernous sinuses. FLOW VOIDS: The expected flow void are noted. No evidence of obvious aneurysm nor obvious vascular ma lformation. PARANASAL SINUSES: The visualized paranasal sinuses appear unremarkable. No obvious finding ORBITS: No obvious findings. IMPRESSION: No significant intracranial findings on this noninfused MRI scan of the brain. If there is a significant clinical history of trigeminal neuralgia then, if clinically indicated, pat ient should return for additional coronal and sagittal 1 mm slice thickness imaging through the regio n of the trigeminal nerves, this to determine if there are abnormal looping vessels impinging upon th e trigeminal nerves. DATA REPOSITORY:
== END 2024-05-13 01:11 ==
PROVIDERS: PCP Student in an Organized Health Care Education/Training Program; Visit Provider Nurse Practitioner Adult Health
DX: R51.9 Headache, unspecified (principal)
CPT/HCPCS: 70551

== ENCOUNTER 2024-07-30 14:31 | Emergency (ER) | payer MEDICAID, SELFPAY ==
[2024-07-30 14:32] VITALS: BP 131/83; PULSE 93; RESP 16; TEMP 36.4; O2SAT 98
--- NOTE | 2024-07-30 14:54 | W.ED.GENAD ---
Discharge Plan Disposition Patient Disposition: Home Discharge Details Clinical Impression: Left ear pain Primary Care Provider: Ayesha Vegas ED Provider: Gibson Mcmahon Home Meds and New Rx's Prescriptions: No Action ibuprofen 200 mg capsule 600 mg PO Q6H PRN acetaminophen [Tylenol Extra Strength] 500 mg tablet 500 mg PO Q6H PRN multivitamin Tablet 1 tab PO DAILY sumatriptan succinate 100 mg tablet See Rx Instructions PO .COMPLEX Qty: 14 3RF Rx Instructions: take 1 tab at onset of headache; if no relief, may repeat 1 tab after at least 2 hrs; max = 2 tabs/24 hrs PO propranolol 10 mg tablet 10 mg PO BID Qty: 60 2RF gabapentin 100 mg capsule See Rx Instructions PO QHS Qty: 90 3RF Rx Instructions: 100-300 mg orally every day at bedtime; capsaicin [Arthritis-Muscle (capsaicin)] 0.025 % cream 1 applic topical TID Qty: 25 0RF Rx Instructions: do not wash area for at least 30 min after application diphenhydramine HCl [Benadryl] 25 mg capsule 50 mg PO QHS PRN Patient Comments: Pt reports taking 2 Benadryl's when she has a panic attack, but is out of Ativan.HE levothyroxine 25 mcg capsule 25 mcg PO DAILY Qty: 90 3RF Rx Instructions: Continue. May use capsules or tablets which ever is covered by insurance. escitalopram oxalate [Lexapro] 10 mg tablet 10 mg PO DAILY Qty: 90 1RF Rx Instructions: Trial, with possible increase to 20mg lorazepam 1 mg tablet 1 mg PO Q8H PRN (Reason: anxiety) Qty: 10 0RF Rx Instructions: Take first dose one hour before take off ibuprofen 800 mg tablet 800 mg PO Q8H PRNQty: 30 1RF Discharge Instructions Additional Instructions: No signs of infection or perforation of the left tympanic membrane Please wear protective earplugs when performing, if you continue to have symptoms please follow-up with ENT for further evaluation HPI General Date/Time Provider Initiated Documentation: 07/30/24 14:42. Limitations to Documentation: no limitations. Information obtained by: patient. HPI Narrative: 53-year-old female without significant past medical history presents for evaluation of left ear pain. She reports onset of symptoms a few days ago when she was at band practice. 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 She states that while performing she heard a pop sound and felt like she was underwater. The hearing was garbled but this was temporary and then resolved. She states occasionally she has been having a zapping sensation of discomfort in that ear but her hearing has been normal. She states that she has a performance later this week and was worried that she may have ruptured her eardrum or have another complication and just wanted to get things checked out Related Data Home Medications ?Medication ?Instructions ?Recorded ?Confirmed acetaminophen 500 mg tablet 500 mg PO Q6H PRN 04/23/22 07/30/24 (Tylenol Extra Strength) ibuprofen 200 mg capsule 600 mg PO Q6H PRN 04/23/22 07/30/24 capsaicin 0.025 % topical cream 1 applic topical TID #25 grams 03/15/23 07/30/24 (Arthritis-Muscle (capsaicin)) levothyroxine 25 mcg capsule 25 mcg PO DAILY #90 caps 07/02/23 07/30/24 multivitamin 1 tab PO DAILY 08/13/23 07/30/24 diphenhydramine HCl 25 mg capsule 50 mg PO QHS PRN 09/19/23 07/30/24 (Benadryl) propranolol 10 mg tablet 10 mg PO BID #60 tabs 03/26/24 07/30/24 sumatriptan succinate 100 mg tablet See Rx Instructions PO .COMPLEX 03/26/24 07/30/24 #14 tabs ibuprofen 800 mg tablet 800 mg PO Q8H PRN #30 tabs 04/01/24 07/30/24 escitalopram oxalate 10 mg tablet 10 mg PO DAILY #90 tabs 04/03/24 07/30/24 (Lexapro) lorazepam 1 mg tablet 1 mg PO Q8H PRN anxiety #10 tabs 05/04/24 07/30/24 gabapentin 100 mg capsule See Rx Instructions PO QHS #90 caps 06/18/24 07/30/24 Previous Rx's ?Medication ?Instructions ?Recorded capsaicin 0.025 % topical cream 1 applic topical TID #25 grams 03/15/23 (Arthritis-Muscle (capsaicin)) levothyroxine 25 mcg capsule 25 mcg PO DAILY #90 caps 07/02/23 propranolol 10 mg tablet 10 mg PO BID #60 tabs 03/26/24 sumatriptan succinate 100 mg tablet See Rx Instructions PO .COMPLEX 03/26/24 #14 tabs ibuprofen 800 mg tablet 800 mg PO Q8H PRN #30 tabs 04/01/24 escitalopram oxalate 10 mg tablet 10 mg PO DAILY #90 tabs 04/03/24 (Lexapro) lorazepam 1 mg tablet 1 mg PO Q8H PRN anxiety #10 tabs 05/04/24 gabapentin 100 mg capsule See Rx Instructions PO QHS #90 caps 06/18/24 Allergies Allergy/AdvReac Type Severity Reaction Status Date / Time promethazine (From Phenergan) Allergy Severe Anaphylaxis Verified 07/30/24 14:40 meclizine (From Antivert) Allergy Anaphylaxis Verified 07/30/24 14:40 hydrocodone bitartrate (From AdvReac hallucinati Verified 07/30/24 14:40 Vicodin) ons oxycodone HCl (From Percocet) AdvReac vomiting Verified 07/30/24 14:40 General Stated Complaint: EarProblem LATASHA: 4 Exam Narrative Exam Narrative: Review of Systems: All systems reviewed & are unremarkable except as noted in HPI and below Well-developed, no acute distress NCAT PERRL, normal conjunctiva Right TM and canal unremarkable, left TM with well-healed scar noted, no effusion, no perforation Course Vital Signs Vital signs: Vital Signs Temperature 36.4 C L 07/30/24 14:32 Pulse 93 H 07/30/24 14:32 Respiratory Rate 16 07/30/24 14:32 Blood Pressure 131/83 07/30/24 14:32 Pulse Oximetry 98 07/30/24 14:32 Temperature 36.4 C L 07/30/24 14:32 Temperature Source Temporal Artery Scan 07/30/24 14:32 Pulse 93 H 07/30/24 14:32 Respiratory Rate 16 07/30/24 14:32 Blood Pressure 131/83 07/30/24 14:32 Blood Pressure Position Supine 07/30/24 14:32 Pulse Oximetry 98 07/30/24 14:32 Oxygen Delivery Method Room Air 07/30/24 14:32 Oxygen Flow Rate 0 07/30/24 14:32 Pain Level 5 07/30/24 14:40 Medical Decision Making Emergent evaluation of left ear pain. Initial differential includes barotrauma, perforation, infection. On examination there are no signs of infection or perforation. The patient history is concerning for trauma secondary to loud sound. Her symptoms have essentially resolved. I do advise that she wear protective gear plugs while performing to prevent any further future trauma. If her symptoms persist, she should follow-up with ENT for audiogram and further evaluation Quality:SDME Health Related Social Needs: No Data to Display PFSH All Active Problems Left ear pain (Acute) Anterior epistaxis (Acute) Left-sided trigeminal neuralgia (Acute) Skin lesions (Acute) 06/16/24 [facility] [place] [facility] note: Nevus of face, R supra brow 8mm, elliptical excision done, sutured.HE Hx w/ Dr. Tsai Left-sided headache (Acute) Left facial pain (Acute) Endometrial thickening on ultrasound (Acute) Lymph node enlargement (Acute) left cervical nodes Abnormal tympanic membrane of left ear (Acute) Acute pain of left ear (Acute) Sinus pain (Acute) Painful L>R, max sinus, upper jaw/tooth-ache pain, neuropathic cheek/facial pain Panic reaction (Acute) Atypical chest pain (Acute) Hypothyroid (Chronic) New finding, low TSH, 05/25/23 (my lab order, but pulled during ED visit) Vertigo (Acute) acute a few days ago, with sudden/terrible onset.. now constant/uncomfortable Crush injury lower leg (Acute) Irma-menopausal (Acute) Migraine headache without aura (Acute) Left cervical radiculopathy (Acute) Neck pain, chronic (Acute) Medical History Claudication of right lower extremity Abnormal uterine bleeding Stopped with initiation of Aygestin. Plans to switch to continuous OCPs 01/01/23 Epiglottitis Odynophagia but able .. with effort .. Pharyngitis, acute Trial ABx due to out of proportion pain/tenderness/swelling Acute viral pharyngitis Onset, 11/23 .. ED, 11/24 Lateral epicondylitis, left elbow Singers' nodes (08/18/14) Hoarseness (08/18/14) Family history of colon cancer (06/18/14) Mother, BRIGETTE, Pj aunt 5yr screening cycle Esophageal reflux (09/30/14) Tubular adenoma (~04/27/22) Fam Hx colon ca: Mother, BRIGETTE, Pj aunt 5yr screening cycle Attention and concentration deficit Hx medication, but lifestyle changes to accommodate most needs. Irritability and anger Anxiety state (04/12/14) Depressive disorder Vaginal prolapse without uterine prolapse Urinary frequency Surgical History Status post dilation and curettage Hysteroscopy with dilation and curettage performed for postmenopausal bleeding and thickened endometrium. 04/01/2024 History of colonoscopy with polypectomy (~04/27/22) Biopsy of breast (~1991) Benign cyst Family History Mother , December 2022 Colon cancer Anxiety Grandfather Colon cancer maternal Maternal Aunt Colon cancer Sister Alcohol use disorder Social History Smoking/Tobacco Use Status: Never Smoking risk assessment performed?: Yes Alcohol Intake: current Alcohol Intake frequency: a few times a month Drug use: Never Substance use type: does not use Adopted: No Caregiver/Support person: No Foster care: No Household members: spouse and children Housing: house Number of Children: 3 number of grandchildren: 1 Communication Needs: None Education Level: master's degree current occupation: Unemployed Pets and animals: Yes Pets and animals: cat(s) and farm animals Sexually active: Yes Do you think of yourself as: straight/heterosexual Current gender identity: female What is your relationship status?: How often do you talk on the phone with friends or family?: twice per week How often do you get together with friends or relatives?: once per week Do you belong to any clubs or organized social groups?: no Panel score (0-1 are the most socially isolated patients): 2 What type of physical activity do you participate in: none Special lorena needs: No (Scientology and Tenriism) Seatbelt use: always Helmet use: Yes Drive intox or ride w/intox 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 Date GA/Weeks # Preg Succ Route Wgt Sex Labor Lgth Anesthesia Location Prov [facility] 11/23/92 38 Yes vaginal 2721.554 g Female [place] 01/18/97 40 Yes vaginal Male [place] 11/17/07 40 Yes vaginal 3175.147 g Female [facility]
== END 2024-07-30 14:49 | disposition home or self-care (01) ==
PROVIDERS: Emergency Provider Emergency Medicine; PCP Student in an Organized Health Care Education/Training Program
DX: H92.02 Otalgia, left ear (principal)
CPT/HCPCS: 99283

== ENCOUNTER 2024-12-02 02:09 | Outpatient (CLI) | payer MEDICAID, SELFPAY ==
--- NOTE | 2024-12-02 07:30 | DI.CT_ITS ---
Exam(s) CT ABDOMEN PELVIS W EXAM: CT ABDOMEN PELVIS W CLINICAL HISTORY: abd pain after meals, FH colon CA,r10.12. TECHNIQUE: Imaging Protocol: Axial computed tomography images with coronal and sagittal reformatted images were created and reviewed CONTRAST MATERIAL: Intravenous: Omnipaque 350 Contrast volume:75 ml Oral: yes COMPARISON: No exams were available for comparison FINDINGS: ABDOMEN and PELVIS: Lung Bases: No acute findings. Liver: Normal density. Small cyst in the caudate lobe of the liver. No suspicious mass. Gallbladder and biliary tract: No radiodense calculus. No wall thickening or pericholecystic fluid. No biliary dilation. Pancreas: Normal density. No abnormal calcifications or inflammatory process. No evidence of mass. Spleen: Normal. Kidneys: Normal size, contour and axis. No radiodense stones. No obstructive uropathy. No suspicious masses seen. Adrenal glands: No masses seen. Vasculature: Abdominal aorta non-dilated. Soft tissues: Tiny fatty hernia at the umbilicus. Bladder: No gross wall thickening. No calculi.No focal mass. Bowel: No obstruction. No bowel wall thickening. Appendix normal. Moderate 2 increased quantity of stool. Peritoneal cavity: No ascites. No focal collection. No mesenteric inflammatory response. No free air . Bones: Unremarkable for age. Reproductive organs: Unremarkable. Lymph nodes: No pathologically enlarged lymph nodes. IMPRESSION:: No acute abnormality in the abdomen or pelvis. RADIATION DOSE DELIVERED: Total DLP DATA REPOSITORY: All CT scans at this facility are submitted to the National Radiology Data Registry (NRDR) Dose Index Registry (DIR) with the [employer] (ACR). RADIATION OPTIMIZATION: All CT scans at this facility use at least one of these dose optimization te chniques: automated exposure control; mA and/or kV adjustment per patient size (includes targeted exa ms where dose is matched to clinical indication); or iterative reconstruction.
[2024-12-02] MEDS: Barium Sulfate 2% W/V-Berry Smoothie 450 ML BTL PO ×2 (13:01→13:02)
[2024-12-02] MEDS: Normal Saline - Diluent 50 ML VIAL IJ (14:51)
[2024-12-02] MEDS: Omnipaque 350 MG/ML 100 ML BTL 75 ML IJ (14:55)
== END 2024-12-02 02:29 ==
LOC: DI 02:09
PROVIDERS: PCP Student in an Organized Health Care Education/Training Program; Visit Provider Nurse Practitioner Family
DX: R10.12 Left upper quadrant pain (principal)
CPT/HCPCS: 74177; J3490

== ENCOUNTER 2025-01-14 16:05 | Emergency (ER) | payer MEDICAID, SELFPAY ==
[2025-01-14 16:09] VITALS: BP 131/84; PULSE 76; RESP 20; TEMP 36.3; O2SAT 98
--- NOTE | 2025-01-14 16:38 | W.ED.GENAD ---
Discharge Plan Disposition Patient Disposition: Home Condition: Stable Discharge Details Clinical Impression: Strain of muscle of right groin region, Acute herpes zoster neuropathy Primary Care Provider: Ayesha Vegas ED Provider: Leticia Shoemaker [place] Meds and New Rx's Prescriptions: New valacyclovir [Valtrex] 1 gram tablet 1,000 mg PO BID 7 Days Qty: 14 0RF Rx Instructions: Take 1 tablet by mouth twice daily for the next 7 days prednisone 50 mg tablet 50 mg PO DAILY 5 Days Qty: 5 0RF Rx Instructions: Take 1 tablet daily for the next 5 days Continued ibuprofen 200 mg capsule 600 mg PO Q6H PRN acetaminophen [Tylenol Extra Strength] 500 mg tablet 500 mg PO Q6H PRN multivitamin Tablet 1 tab PO DAILY sumatriptan succinate 100 mg tablet See Rx Instructions PO .COMPLEX Qty: 14 3RF Rx Instructions: take 1 tab at onset of headache; if no relief, may repeat 1 tab after at least 2 hrs; max = 2 tabs/24 hrs PO gabapentin 100 mg capsule See Rx Instructions PO QHS Qty: 90 3RF Rx Instructions: 100-300 mg orally every day at bedtime; propranolol 10 mg tablet 10 mg PO BID Qty: 180 2RF capsaicin [Arthritis-Muscle (capsaicin)] 0.025 % cream 1 applic topical TID Qty: 25 0RF Rx Instructions: do not wash area for at least 30 min after application diphenhydramine HCl [Benadryl] 25 mg capsule 50 mg PO QHS PRN Patient Comments: Pt reports taking 2 Benadryl's when she has a panic attack, but is out of Ativan.HE polyethylene glycol 3350 [Miralax] 17 gram/dose powder 17 g PO BID Qty: 119 2RF levothyroxine 25 mcg capsule 25 mcg PO DAILY Qty: 90 3RF Rx Instructions: Continue. May use capsules or tablets which ever is covered by insurance. lorazepam 1 mg tablet 1 mg PO Q8H PRN (Reason: anxiety) Qty: 10 0RF Rx Instructions: Take first dose one hour before take off escitalopram oxalate 10 mg tablet See Rx Instructions .ROUTE .COMPLEX Qty: 30 3RF Dose Instruction: TAKE ONE TABLET BY MOUTH EVERY DAY Rx Instructions: TAKE ONE TABLET BY MOUTH EVERY DAY ibuprofen 800 mg tablet 800 mg PO Q8H PRNQty: 30 1RF Discharge Instructions Instructions: Using Cold for Pain, Muscle Strain ED, Shingles Additional Instructions: At this time on the unofficial bedside ultrasound there is no evidence for DVT or blood clot in your leg. I do suspect a musculoskeletal strain or shingles. Please take the Flexeril as needed at home for the first 2 to 3 days. If pain continues or gets worse or any rash appears please begin the antiviral as prescribed along with the prednisone. A outpatient ultrasound was ordered to have an official result. Follow up with primary care provider in 3-5 days. Return to ED sooner if any worsening or concerns. Rest, ice, elevation, please take Tylenol or Ibuprofen with food every 4-6 hours as needed for pain and swelling. Stand Alone Forms: Work Release Referrals: Ayesha Vegas DO [Primary Care Provider, Medicine] - 1 week Referral Note: ER follow-up Clinical Impression: Acute herpes zoster neuropathy; Strain of muscle of right groin region Discharge Orders Other Ambulatory Orders: US lower extremity venous RT (Routine) Timeframe: 1 Week Facility: [facility] - Location: DIAGNOSTIC IMAGING Ordered By: Leticia Shoemaker [facility] General Mode of arrival: ambulatory. Date/Time Provider Initiated Documentation: 01/14/25 16:19. Limitations to Documentation: no limitations. Information obtained by: patient, RN notes reviewed and old records reviewed. HPI Narrative: 54-year-old female presents to the ER with a chief complaint of right groin pain which radiates down into her right leg for the last week which is worsening. She does have pain with touching her skin, she also has some burst blood vessels noted on her labia she denies any injury. 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 No erythema redness fever chills, mild skin swelling noted to her right groin. She does have a small welt to her right lower lumbar back. She did take ibuprofen prior to arrival approximately an hour ago. She describes it as burning. Denies any other associated symptoms or concerns denies any chest pain shortness of breath. Other past medical history include hypothyroidism anxiety ADHD. Related Data Home Medications ?Medication ?Instructions ?Recorded ?Confirmed acetaminophen 500 mg tablet 500 mg PO Q6H PRN 04/23/22 01/14/25 (Tylenol Extra Strength) ibuprofen 200 mg capsule 600 mg PO Q6H PRN 04/23/22 01/14/25 capsaicin 0.025 % topical cream 1 applic topical TID #25 grams 03/15/23 01/14/25 (Arthritis-Muscle (capsaicin)) levothyroxine 25 mcg capsule 25 mcg PO DAILY #90 caps 07/02/23 01/14/25 multivitamin 1 tab PO DAILY 08/13/23 01/14/25 diphenhydramine HCl 25 mg capsule 50 mg PO QHS PRN 09/19/23 01/14/25 (Benadryl) sumatriptan succinate 100 mg tablet See Rx Instructions PO .COMPLEX 03/26/24 01/14/25 #14 tabs ibuprofen 800 mg tablet 800 mg PO Q8H PRN #30 tabs 04/01/24 01/14/25 lorazepam 1 mg tablet 1 mg PO Q8H PRN anxiety #10 tabs 05/04/24 01/14/25 gabapentin 100 mg capsule See Rx Instructions PO QHS #90 caps 06/18/24 01/14/25 propranolol 10 mg tablet 10 mg PO BID #180 tabs 08/04/24 01/14/25 polyethylene glycol 3350 17 17 g PO BID constipation #119 grams 11/13/24 01/14/25 gram/dose oral powder (Miralax) escitalopram oxalate 10 mg tablet See Rx Instructions .Route 11/29/24 01/14/25 .COMPLEX #30 tabs prednisone 50 mg tablet 50 mg PO DAILY Inflammation 5 days 01/14/25 #5 tabs valacyclovir 1 gram tablet 1,000 mg PO BID Viral Neuropathy 7 01/14/25 (Valtrex) days #14 tabs Previous Rx's ?Medication ?Instructions ?Recorded capsaicin 0.025 % topical cream 1 applic topical TID #25 grams 03/15/23 (Arthritis-Muscle (capsaicin)) levothyroxine 25 mcg capsule 25 mcg PO DAILY #90 caps 07/02/23 sumatriptan succinate 100 mg tablet See Rx Instructions PO .COMPLEX 03/26/24 #14 tabs ibuprofen 800 mg tablet 800 mg PO Q8H PRN #30 tabs 04/01/24 lorazepam 1 mg tablet 1 mg PO Q8H PRN anxiety #10 tabs 05/04/24 gabapentin 100 mg capsule See Rx Instructions PO QHS #90 caps 06/18/24 propranolol 10 mg tablet 10 mg PO BID #180 tabs 08/04/24 polyethylene glycol 3350 17 17 g PO BID constipation #119 grams 11/13/24 gram/dose oral powder (Miralax) escitalopram oxalate 10 mg tablet See Rx Instructions .Route 11/29/24 .COMPLEX #30 tabs prednisone 50 mg tablet 50 mg PO DAILY Inflammation 5 days 01/14/25 #5 tabs valacyclovir 1 gram tablet 1,000 mg PO BID Viral Neuropathy 7 01/14/25 (Valtrex) days #14 tabs Allergies Allergy/AdvReac Type Severity Reaction Status Date / Time promethazine (From Phenergan) Allergy Severe Anaphylaxis Verified 01/14/25 16:07 meclizine (From Antivert) Allergy Anaphylaxis Verified 01/14/25 16:07 hydrocodone bitartrate (From AdvReac hallucinati Verified 01/14/25 16:07 Vicodin) ons oxycodone HCl (From Percocet) AdvReac vomiting Verified 01/14/25 16:07 General Stated Complaint: GenMedical LATASHA: 3 Review of Systems All systems reviewed & are unremarkable except as noted in HPI and below Musculoskeletal Musculoskeletal: Reports as per HPI and Reports back pain Integumentary/Breasts Skin/Breast: Denies pruritus, Denies erythema, Reports rash, Reports skin pain and Reports unusual bruising (Small blood vessels on labia x 1 week) Exam Narrative Exam Narrative: Constitutional: Alert and oriented x3. Appears stated age. Normal body habitus. Head: Normocephalic, no trauma. Eyes: Pupils PERRL, Red reflex noted, EOM's intact. Eyelids symmetrical without lesions, discharge, or swelling. Chest: RRR, Normal S1, S2, distal pulses intact. Resp: Lungs clear to auscultation bilaterally, no wheezes, rales, or rhonchi. Abdomen: Soft, non-distended, Normoactive bowel sounds all 4 quads. No masses palpated. Musculoskeletal: Patient has tenderness with active range of motion and palpation to her right groin, no erythema, warmth, negative Homans' sign. Skin: Capillary refill less than 2 sec. small maculopapular welt noted on her right lower lumbar area. No vesicles or drainage no other rashes noted. Neurologic: Cranial nerves II-XII intact. Alert and oriented x 3. Motor: No deficits noted. Sensory: Intact bilaterally all 4 extremities. Hematologic/Lymphatic: No ecchymosis, no lymphadenopathy. Skin General skin exam: petechiae (To labia bilaterally) and other Rashes: rashes noted (Small maculopapular lession R lower lumbar) Trauma: no abrasions and no lacerations Wounds: wound noted Hair: normal Extrem Right lower extremity: full ROM (Pain with active ROM, and palpation to skin) and normal capillary refill Course Vital Signs Vital signs: Vital Signs Temperature 36.3 C L 01/14/25 16:09 Pulse 76 01/14/25 16:09 Respiratory Rate 20 01/14/25 16:09 Blood Pressure 131/84 01/14/25 16:09 Pulse Oximetry 98 01/14/25 16:09 Temperature 36.3 C L 01/14/25 16:09 Temperature Source Oral 01/14/25 16:09 Pulse 76 01/14/25 16:09 Respiratory Rate 20 01/14/25 16:09 Blood Pressure 131/84 01/14/25 16:09 Blood Pressure Position Sitting 01/14/25 16:09 Pulse Oximetry 98 01/14/25 16:09 Oxygen Delivery Method Room Air 01/14/25 16:09 Oxygen Flow Rate 0 01/14/25 16:09 Pain Level 7 01/14/25 16:09 Medical Decision Making 54-year-old female presents to the ER with a chief complaint of right groin pain which radiates down into her right leg for the last week which is worsening. She does have pain with touching her skin, she also has some burst blood vessels noted on her labia she denies any injury. 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 No erythema redness fever chills, mild skin swelling noted to her right groin. She does have a small welt to her right lower lumbar back. She did take ibuprofen prior to arrival approximately an hour ago. She describes it as burning. Denies any other associated symptoms or concerns denies any chest pain shortness of breath. Other past medical history include hypothyroidism anxiety ADHD. Workup ordered including CBC, CMP, PT PTT, D-dimer, tick and Lyme panel as patient also states that she was bit by a tick approximately a week ago. Denies any significant trauma so imaging not required at this time however I will put a bedside ultrasound on her leg to assist in the diagnosis of possible DVT. I will order a outpatient ultrasound to be done in the next 48 hours to rule out DVT. Other differential includes shingles, Lyme, musculoskeletal strain. Bedside ultrasound POCUS performed to assist with diagnosis and to rule out possibility of DVT, all large vessels were compressible at this time on the right leg. This is reassuring that DVT can be ruled out. However, will also encourage patient to have an outpatient ultrasound performed if leg pain continues. CBC shows no leukocytosis, PT PTT within normal limits CMP is largely within normal limits as well, tick and Lyme panel pending at this time. Dimer pending. Discussed plan of care with patient. Will give Flexeril and instruct to ice and alternate Tylenol ibuprofen if no improvement over the next couple of days with rest will instruct to begin the antiviral and a stent of prednisone. Will order outpatient US for next week. Discussed home care follow-up care with patient discussed strict return instructions. Patient verbalized understanding. This text was generated using [employer] system, please disregard any oddities of phrase or misspellings. Medical Records Medical records reviewed: Yes I reviewed the patient's medical records. Lab Data Lab results reviewed: Yes I reviewed the patient's lab results. Labs: Laboratory Tests Range/Units 01/14/25 16:43 WBC (4.4-10.8) 10^3/uL 6.24 RBC (3.93-5.22) 10^6/uL 4.04 Hgb (11.2-15.7) g/dL 13.4 Hct (36.0-46.0) % 40.1 MCV (80-95) fL 99 H MCH (27.0-33.0) pg 33.2 H MCHC (32.0-36.0) % 33.4 RDW (11.7-14.6) % 11.9 Plt Count (130-400) 10^3/uL 219 MPV (8.0-11.0) fL 9.4 Immature Gran % % 0.2 Neutrophils % % 60.8 Lymphocytes % % 26.8 Monocytes % % 8.8 Eosinophils % % 2.6 Basophils % % 0.8 Nucleated RBC % (0.0-0.3) % 0.0 Absolute Neutrophils (1.2-6.7) 10^3/uL 3.80 Absolute Lymphocytes (1.2-3.4) 10^3/uL 1.67 Absolute Monocytes (0.1-0.8) 10^3/uL 0.55 Absolute Eosinophils (0.0-0.7) 10^3/uL 0.16 Absolute Basophils (0.0-0.2) 10^3/uL 0.05 PT (9.1-11.1) sec 10.1 INR (0.9-1.1) 1.0 APTT (20.6-30.2) sec 25.0 D-Dimer (<500) ng/mlFEU 335 Sodium (136-145) mmol/L 142 Potassium (3.5-5.1) mmol/L 4.0 Chloride (98-107) mmol/L 105 Carbon Dioxide (21.0-32.0) mmol/L 27.4 Anion Gap (3-11) mmol/L 9.6 BUN (7-18) mg/dL 17 Creatinine (0.55-1.02) mg/dL 0.8 Est GFR (CKD-EPI 2020) (mL/min/1.73m2) 88.05 Glucose (74-106) mg/dL 85 Calcium (8.5-10.1) mg/dL 9.0 Total Bilirubin (0.2-1.0) mg/dL 0.3 AST (15-37) U/L 12 L ALT (14-59) U/L 28 Alkaline Phosphatase (46-116) U/L 100 Total Protein (6.4-8.2) g/dL 7.8 Albumin (3.4-5.0) g/dL 4.0 PFSH All Active Problems (Updated 01/14/25 @ 17:32 by Leticia Shoemaker NP) Acute herpes zoster neuropathy (Acute) Strain of muscle of right groin region (Acute) Left upper arm pain (Acute) Anterior epistaxis (Acute) Left-sided trigeminal neuralgia (Acute) Skin lesions (Acute) 06/16/24 [facility] [place] [facility] note: Nevus of face, R supra brow 8mm, elliptical excision done, sutured.HE Hx w/ Dr. Tsai Left-sided headache (Acute) Left facial pain (Acute) Endometrial thickening on ultrasound (Acute) Lymph node enlargement (Acute) left cervical nodes Abnormal tympanic membrane of left ear (Acute) Acute pain of left ear (Acute) Sinus pain (Acute) Painful L>R, max sinus, upper jaw/tooth-ache pain, neuropathic cheek/facial pain Panic reaction (Acute) Atypical chest pain (Acute) Hypothyroid (Chronic) New finding, low TSH, 05/25/23 (my lab order, but pulled during ED visit) Vertigo (Acute) acute a few days ago, with sudden/terrible onset.. now constant/uncomfortable Crush injury lower leg (Acute) Irma-menopausal (Acute) Migraine headache without aura (Acute) Left cervical radiculopathy (Acute) Neck pain, chronic (Acute) Medical History Claudication of right lower extremity Abnormal uterine bleeding Stopped with initiation of Aygestin. Plans to switch to continuous OCPs 01/01/23 Epiglottitis Odynophagia but able .. with effort .. Pharyngitis, acute Trial ABx due to out of proportion pain/tenderness/swelling Acute viral pharyngitis Onset, 11/23 .. ED, 11/24 Lateral epicondylitis, left elbow Singers' nodes (08/18/14) Hoarseness (08/18/14) Family history of colon cancer (06/18/14) Mother, MGF, Mat aunt 5yr screening cycle Esophageal reflux (09/30/14) Tubular adenoma (~04/27/22) Fam Hx colon ca: Mother, MGF, Mat aunt 5yr screening cycle Attention and concentration deficit Hx medication, but lifestyle changes to accommodate most needs. Irritability and anger Anxiety state (04/12/14) Depressive disorder Vaginal prolapse without uterine prolapse Urinary frequency Surgical History Status post dilation and curettage Hysteroscopy with dilation and curettage performed for postmenopausal bleeding and thickened endometrium. 04/01/2024 History of colonoscopy with polypectomy (~04/27/22) Biopsy of breast (~1991) Benign cyst Family History Mother , December 2022 Colon cancer Anxiety Grandfather Colon cancer maternal Maternal Aunt Colon cancer Sister Alcohol use disorder Social History Smoking/Tobacco Use Status: Never Smoking risk assessment performed?: Yes Alcohol Intake: current Alcohol Intake frequency: a few times a month Drug use: Never Substance use type: does not use Adopted: No Caregiver/Support person: No Foster care: No Household members: spouse and children Housing: house Number of Children: 3 number of grandchildren: 1 Communication Needs: None Education Level: master's degree current occupation: Unemployed Pets and animals: Yes Pets and animals: cat(s) and farm animals Sexually active: Yes Do you think of yourself as: straight/heterosexual Current gender identity: female What is your relationship status?: How often do you talk on the phone with friends or family?: twice per week How often do you get together with friends or relatives?: once per week Do you belong to any clubs or organized social groups?: no Panel score (0-1 are the most socially isolated patients): 2 What type of physical activity do you participate in: none Special lorena needs: No (Caodaism and Confucianist) Seatbelt use: always Helmet use: Yes Drive intox or ride w/intox ross carrier driver: No Working smoke detector in home: Yes Carbon monox detector in home: Yes Do you feel safe at home: Yes Do you feel safe in your relationship?: Yes Female Reproductive History Menstrual Age of Menarche: 15 Duration of menses: other History History 3 Para Hx # Term Pregnancies 3 Multiple births Hx # Pregnancies Ectopic pregnancies AB induced Hx Number of Living Children AB spontaneous Past Pregnancies Del. Date GA/Weeks # Preg Succ Route Wgt Sex Labor Lgth Anesthesia Location [facility] 11/23/92 38 Yes vaginal 2721.554 g Female [place] 01/18/97 40 Yes vaginal Male [place] 11/17/07 40 Yes vaginal 3175.[address] [facility]
[2025-01-14 16:46] VITALS: BP 131/84; PULSE 76; RESP 20; TEMP 36.3; O2SAT 98
[2025-01-14 16:58] LABS: Abs Immature Grans 0.01 10^3/uL (0.0-0.06); HCT 40.1 % (36.0-46.0); HGB 13.4 g/dL (11.2-15.7); Immature Grans % 0.2 %; MCH 33.2 pg (27.0-33.0); MCHC 33.4 % (32.0-36.0); MCV 99 fL (80-95); MPV 9.4 fL (8.0-11.0); Platelet Count 219 10^3/uL (130-400); RBC 4.04 10^6/uL (3.93-5.22); RDW 11.9 % (11.7-14.6); RDW-SD 44.3 fL; WBC 6.24 10^3/uL (4.4-10.8)
[2025-01-14 17:11] LABS: ALT 28 U/L (14-59); AST 12 U/L (15-37); Albumin 4.0 g/dL (3.4-5.0); Alkaline Phosphatase 100 U/L (46-116); Anion Gap 9.6 mmol/L (3-11); BUN 17 mg/dL (7-18); Bilirubin, Total 0.3 mg/dL (0.2-1.0); CO2 27.4 mmol/L (21.0-32.0); Calcium 9.0 mg/dL (8.5-10.1); Chloride 105 mmol/L (98-107); Estimated GFR 88.05 (mL/min/1.73m2); Glucose 85 mg/dL (74-106); INR 1.0 (0.9-1.1); PTT Activated 25.0 sec (20.6-30.2); Potassium 4.0 mmol/L (3.5-5.1); Prothrombin Time 10.1 sec (9.1-11.1); Sodium 142 mmol/L (136-145); Total Protein 7.8 g/dL (6.4-8.2)
[2025-01-14 17:36] LABS: D-Dimer 335 ng/mlFEU (<500)
[2025-01-14] MEDS: Acetaminophen 325 MG TAB 650 MG PO (18:15)
[2025-01-14] MEDS: Cyclobenzaprine 10 MG TAB, 3 TABS/BTL PO (18:15)
[2025-01-18 09:07] LABS: Lyme Ab w Rflx to Lyme Confirm Negative (Negative)
[2025-01-19 23:50] LABS: B. miyamotoi PCR Negative (Negative); Babesia divergens/MO-1 Negative (Negative); Ehrlichia muris eauclairensis Negative (Negative)
== END 2025-01-14 18:21 | disposition home or self-care (01) ==
PROVIDERS: Emergency Provider Registered Nurse Emergency; PCP Student in an Organized Health Care Education/Training Program
DX: B02.23 Postherpetic polyneuropathy (principal); S39.011A Strain of muscle, fascia and tendon of abdomen, initial encounter; X58.XXXA Exposure to other specified factors, initial encounter
CPT/HCPCS: 80053; 87798; 99284; 85025; 85379; 85610; 85730; 86618; 99283

== ENCOUNTER 2025-03-17 15:05 | Outpatient (CLI) | payer MEDICAID, SELFPAY ==
--- NOTE | 2025-03-17 14:45 | DI.RAD_ITS ---
Exam(s) XR SHOULDER LT COMPLETE 2+V EXAM: XR SHOULDER LT COMPLETE 2+V CLINICAL HISTORY: LEFT SHOULDER PAIN. TECHNIQUE: 2D digital imaging was performed. Three views. COMPARISON: No exams were available for comparison FINDINGS: BONES: No acute fracture is present. No bony destructive lesion is seen. JOINTS: No dislocation present. There is minimal spurring at the glenoid and AC joint. SOFT TISSUE: Normal. IMPRESSION: Minimal degenerative changes. DATA REPOSITORY: RADIATION DOSE DELIVERED:
== END 2025-03-17 15:06 | disposition home or self-care (01) ==
LOC: DIORS 15:05
PROVIDERS: PCP Student in an Organized Health Care Education/Training Program; Visit Provider Student in an Organized Health Care Education/Training Program
DX: M79.622 Pain in left upper arm (principal); M21.922 Unspecified acquired deformity of left upper arm
CPT/HCPCS: 73030

== ENCOUNTER 2025-04-09 03:50 | Outpatient (CLI) | payer MEDICAID, SELFPAY ==
--- NOTE | 2025-04-09 05:45 | DI.MRI_ITS ---
Exam(s) MR UPPER JOINT LT WO EXAM: MR UPPER JOINT LT WO CLINICAL HISTORY: L SHOULDER PAIN,LT ROTATOR CUFF TEAR,ADHESIVE CAPSULITIS,M75.102. TECHNIQUE: Multiplanar multisequence MRI was performed. COMPARISON: Plain films 17 March 2025 FINDINGS: BONES: There is no fracture or contusion pattern. Degenerative cysts in the greater tuberosity JOINTS:The acromioclavicular joint is shows mild spurring. The glenohumeral joint shows a small amount of fluid TENDONS: Supraspinatus: Abnormal thickening and intermediate signal. Focal full- thickness tear noted anteriorly at the attachment. Infraspinatus: Unremarkable. Subscapularis: Unremarkable. Teres Minor: Unremarkable. Biceps and [place]: Unremarkable. MUSCLES: Unremarkable. GLENOID LABRUM: Unremarkable on this noncontrast examination. SOFT TISSUES: Unremarkable. BURSAE: Subacromial and subdeltoid bursae shows minimal fluid. Small amount of fluid is present in the subcoracoid bursa.. IMPRESSION: Supraspinatus tendinosis. Small focal tear seen anteriorly at the insertion on the greater tuberosity. Subjacent cyst at the greater tuberosity. DATA REPOSITORY:
== END 2025-04-09 04:10 ==
PROVIDERS: PCP Nurse Practitioner Family; Visit Provider Student in an Organized Health Care Education/Training Program
DX: M67.814 Other specified disorders of tendon, left shoulder (principal); M75.02 Adhesive capsulitis of left shoulder
CPT/HCPCS: 73221

== ENCOUNTER 2025-06-18 01:48 | Outpatient (CLI) | payer MEDICAID, SELFPAY ==
[2025-06-18 08:48] LABS: Hemoglobin A1C 5.1 % (<5.7)
[2025-06-18 09:33] LABS: Cholesterol 232 mg/dL (<200); HDL Cholesterol 80 mg/dL (>40)
[2025-06-18 09:36] LABS: TSH (W/Ref FT4) 1.80 uIU/mL (0.55-4.78)
== END 2025-06-18 01:49 | disposition home or self-care (01) ==
LOC: LBO 01:49
PROVIDERS: PCP Nurse Practitioner Family; Visit Provider Nurse Practitioner Family
DX: E03.9 Hypothyroidism, unspecified (principal); Z00.00 Encounter for general adult medical examination without abnormal findings
CPT/HCPCS: 36415; 80061; 83036; 84443